=== PATIENT | female | born 1985 | race African-American/Black ===

== ENCOUNTER 2024-02-10 11:12 | Emergency (ER) | payer OTHER, SELFPAY ==
--- NOTE | 2024-02-10 11:24 | ED.SKABFB ---
HPI - Skin/Abscess/Foreign Bdy General Chief complaint: Skin/Abscess/Foreign Body Stated complaint: boil Time Seen by Provider: 02/10/24 11:38 Source: patient, RN notes reviewed and old records reviewed Mode of arrival: ambulatory Limitations: no limitations History of Present Illness HPI narrative: 38-year-old female presents to the [facility] with complaints of a boil to the posterior right labia has a history of a boil to the groin area on the same side. States that she tried squeezing it but was not able to get anything out. Reports that she has been using warm compresses with no relief. Onset (ago): week(s) (1) Related Data Home Medications Medication Instructions Recorded Confirmed alprazolam 1 mg tablet mg 02/10/24 bupropion HCl 150 mg 24 hr tablet, mg PO 02/10/24 extended release buspirone 30 mg tablet mg 02/10/24 cetirizine 10 mg tablet (Zyrtec) 10 mg PO DAILY 02/10/24 02/10/24 etonogestrel 68 mg subdermal 1 implant subdermal ONCE 02/10/24 02/10/24 implant (Nexplanon) losartan 50 mg tablet mg 02/10/24 montelukast 10 mg tablet mg 02/10/24 sertraline 100 mg tablet mg 02/10/24 tirzepatide 2.5 mg/0.5 mL mg subcut 02/10/24 subcutaneous pen injector (Mounjaro) Allergies Allergy/AdvReac Type Severity Reaction Status Date / Time No Known Allergies Allergy Verified 02/10/24 11:39 Review of Systems Review of Systems: All systems reviewed & are unremarkable except as noted in HPI and below Constitutional: Constitutional: Reports no additional constitutional complaints Eyes: Eyes: Reports no additional eye complaints ENT: Reports system reviewed and no additional complaints, except as documented Cardiovascular: Cardiovascular: Reports no additional cardiovascular complaints, Denies chest pain and Denies dyspnea Respiratory: Respiratory: Reports no additional respiratory complaints, Denies chest congestion, Denies cough and Denies dyspnea Gastrointestinal: Gastrointestinal: Reports no additional gastrointestinal complaints, Denies abdominal pain, Denies nausea and Denies vomiting Genitourinary: Genitourinary: Reports as per HPI Musculoskeletal: Musculoskeletal: Reports no additional musculoskeletal complaints Integumentary/Breasts: Skin/Breast: Reports system reviewed and no additional complaints, except as docu Neurologic: Reports system reviewed and no additional complaints, except as documented Psychiatric: Psychiatric: Reports no additional psychiatric complaints Allergic/Immunologic: Allergic/Immunologic: Reports no additional allergic/immunologic complaints PMFSH Comments At the time of my signature, I reviewed and agree with the nursing past medical, surgical, social, and family history. There is no relevant family history pertinent to the patient complaint. Exam Const: General: cooperative, healthy appearing, comfortable, no acute distress, well developed, alert and well nourished Nutritional Appearance: well nourished Orientation/consciousness: patient oriented x3 Limitations: no limitations HENMT: Head: normal to inspection Ears: hearing grossly normal bilaterally and external ears normal Face/Nose/Sinus: Normal external nose present, Normal nares present, Normal nasal mucous membranes and turbinates present, normal facial exam and face symmetric Face and sinus: normal facial exam and face symmetric Eyes: General: appearance normal, both eyes and all related structures Alignment and Position: alignment normal Periorbital: periorbital findings normal Pupils: Equal, round and reactive pupils present EOM: EOMs intact bilaterally Neck: Neck: normal visual inspection, full ROM, no lymphadenopathy and no meningeal signs Chest: Chest palpation & inspection: normal inspection of the chest Resp: Effort & Inspection: normal respiratory effort and able to speak in complete sentences Cardio: Rate: regular rate Rhythm: regular rhythm : External Female Exam: No erythema, N
[2024-02-10 11:33] VITALS: BP 129/81; PULSE 90; RESP 18; TEMP 36.3; O2SAT 98
[2024-02-10] MEDS: LIDOCAINE HCL 1% LOCAL INJ 2 ML AMPUL INFILTRATE (11:56)
--- NOTE | 2024-02-10 12:00 | PC.NURSE ---
Lidocaine not used, will return to pyxis
== END 2024-02-10 12:15 | disposition home or self-care (01) ==
PROVIDERS: Emergency Provider Nurse Practitioner
DX: N90.7 Vulvar cyst (principal)
CPT/HCPCS: 99213; G0463

== ENCOUNTER 2024-05-04 17:36 | Inpatient (IN) | payer OTHER, SELFPAY ==
[2024-05-04] VITALS (9 sets, daily range): BP systolic 113–143; BP diastolic 66–74; PULSE 113–130; RESP 17–26; TEMP 37.1–38.1; O2SAT 98–100; BMI 40.6
--- NOTE | ~2024-05-04 | XR_ITS ---
EXAMINATION: XR chest 2V DATE: 05/04/2024 18:31 INDICATION: Sepsis. TECHNIQUE: Frontal and lateral views of the chest were obtained. COMPARISON: None. FINDINGS: There is no pneumonia, pleural effusion, or pneumothorax. The heart size is normal. IMPRESSION: 1. No acute cardiopulmonary disease. Reviewed, dictated and finalized at location E.
--- NOTE | ~2024-05-04 | CT_ITS ---
EXAMINATION: CT abdomen pelvis w con DATE: 05/04/2024 20:40 INDICATION: Right flank pain. Septic. TECHNIQUE: Computed tomography (CT) of the abdomen and pelvis was performed with 100 mL Omnipaque 350 intravenous contrast. Automated exposure control and iterative reconstruction technique were employe d. The dose-length product was 1493.41 mGy-cm. COMPARISON: None. FINDINGS: The lung bases are clear without pneumonia or pleural effusion. The heart size is normal. N o pericardial effusion. There are bilateral breast implants. The liver and spleen are normal. There a re changes of cholecystectomy. The pancreas, adrenal glands, and left kidney are normal. There is cor tical thinning of right kidney. There is asymmetric edema around right kidney. There is a striated ri ght-sided contrast nephrogram. There is urothelial thickening and enhancement involving the right ure ter. There are no dilated loops of bowel. The appendix is normal. There are no pathologically enlarge d lymph nodes. There is no free intraperitoneal fluid. There is severe lower lumbar spondylosis. IMPRESSION: 1. Right-sided pyelonephritis. Reviewed, dictated and finalized at location E.
--- NOTE | 2024-05-04 17:48 | ECG_ITS ---
Test Date: 2024-05-04 18:45:40 Measurements Intervals [place] Rate: 110 P: 65 MS: 159 QRS: 1 QRSD: 94 T: 66 QT: 318 QTc: 431 Interpretive Statements SINUS TACHYCARDIA OTHERWISE NORMAL ECG No previous ECG available for comparison Electronically Signed On 05-05-2024 08:36:25 CDT by Mahad Connor M.D.
--- NOTE | 2024-05-04 17:50 | ED.BACK ---
HPI - Back Pain/Injury General Chief Complaint: Back Pain/Injury Stated Complaint: R flank pain, headache Time Seen by Provider: 05/04/24 17:37 Source: patient Mode of arrival: ambulatory Limitations: no limitations History of Present Illness HPI Narrative: This is a 38-year-old female who presents to the ED via EMS with chief complaint of right flank pain that started yesterday. Reports sweats, fevers with temperature max of 102.9? F. Endorses urinary frequency as well and thinks that she may have pyelonephritis. 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 States that she had urologic procedure in 2019 due to retrograde urinary flow, but has not had any issues with this. Endorses some pain over the bladder but denies any left-sided flank pain. Denies chest pain, shortness of breath, syncope, dizziness, problems with bowel movements. also had recent surgical history of left ankle ligament repair and currently has the leg wrapped in Reyes wrap. Related Data Home Medications Medication Instructions Recorded Confirmed alprazolam 1 mg tablet 1 mg PO BID PRN Anxiety 02/10/24 05/04/24 bupropion HCl 150 mg 24 hr tablet, 300 mg PO DAILY 02/10/24 05/04/24 extended release buspirone 30 mg tablet 30 mg PO BID 02/10/24 05/04/24 cetirizine 10 mg tablet (Zyrtec) 10 mg PO DAILY 02/10/24 05/04/24 etonogestrel 68 mg subdermal 1 implant subdermal ONCE 02/10/24 05/04/24 implant (Nexplanon) losartan 50 mg tablet 50 mg PO DAILY 02/10/24 05/04/24 montelukast 10 mg tablet 10 mg PO DAILY 02/10/24 05/04/24 sertraline 100 mg tablet 150 mg PO DAILY 02/10/24 05/04/24 tirzepatide 2.5 mg/0.5 mL 2.5 mg subcut WEEKLY 02/10/24 05/04/24 subcutaneous pen injector (Hair) aspirin 325 mg tablet,delayed 325 mg PO DAILY ankle surgery 05/04/24 05/04/24 release benzonatate 100 mg capsule 100 mg PO TID 05/04/24 05/05/24 docusate sodium 100 mg capsule 100 mg PO DAILY 05/04/24 05/04/24 duloxetine 30 mg capsule,delayed 30 mg PO BID 05/04/24 05/04/24 release esketamine 84 mg (28 mg x 3) nasal 84 mg intranasal DAILY 05/04/24 05/04/24 spray (Spravato) eszopiclone 2 mg tablet (Lunesta) 2 mg PO HS 05/04/24 05/04/24 ferrous sulfate 325 mg (65 mg 325 mg PO DAILY 05/04/24 05/04/24 iron) tablet (FeroSul) folic acid 1 mg tablet 1 mg PO DAILY 05/04/24 05/04/24 oxycodone-acetaminophen 10 mg-325 1 tablet PO Q6H PRN left ankle pain 05/04/24 05/04/24 mg tablet Allergies Allergy/AdvReac Type Severity Reaction Status Date / Time No Known Allergies Allergy Verified 02/10/24 11:39 Review of Systems Review of Systems: All systems as dictated in [facility] Family History Family History (Updated 05/04/24 @ 23:51 by Rosi Lemons) Sibling End stage kidney disease Father Cancer Hypertension Mother Diabetes mellitus Social History Social History Smoking status: Never smoker Alcohol intake: never Substance use: never Do You Feel Safe in your Home?: Yes Lack of Transportation: No Lack of Food: Never True Current Housing: I Have Housing Concerned About Future Housing: No Difficulty Paying Gas/Electric Bills: No Difficulty Paying for Meds: No Currently Unemployed: No Education: Master's Degree or Higher Difficulty w/ Childcare or Family Care: No Spiritual care concerns: No Exam Narrative: GENERAL: Well-appearing, well-nourished, and in no acute distress. HEAD: Normocephalic, atraumatic. EYES: PERRLA and EOMI. ENT: Nares clear, no rhinorrhea or epistaxis. Mucous membranes moist. Oropharynx without tonsillar hypertrophy exudate or other lesions. NECK: Supple. No adenopathy or masses. CHEST: No respiratory distress. Clear to auscultation. No wheezes rales or rhonchi HEART: Regular rate and rhythm. No murmur heard. Normal peripheral pulses. ABDOMEN: R flank tenderness. No L flank tenderness Soft, otherwise nontender, nondistended, normal a
[2024-05-04] MEDS: SODIUM CHLORIDE 0.9% IV 1,000 ML 999 ML IV CONT ×2 (18:19)
[2024-05-04] MEDS: METOCLOPRAMIDE HCL INJ 10 MG/2 ML VIAL IV PUSH (18:19)
[2024-05-04 18:20] LABS: Hematocrit 42.8 % (37.0-47.0); Hemoglobin 14.3 g/dL (12.0-15.0); Mean Corpuscular HGB Conc 33.4 g/dl (32-36); Mean Corpuscular Hemoglobin 30.4 pg (26-34); Mean Corpuscular Volume 90.9 fl (80-100); Mean Platelet Volume 10.2 fl (7.4-10.4); Platelet Count Result 189 k/mm3 (150-375); Red Blood Count 4.71 M/mm3 (4.2-5.4); Red Cell Distribution Width 11.9 % (11.5-14.5)
[2024-05-04 18:30] LABS: INR 1.2; Prothrombin Time 15.4 Seconds (11.1-14.7)
[2024-05-04 18:31] LABS: Partial Thromboplastin Time 27.2 Seconds (22.3-36.8)
[2024-05-04 18:33] LABS: Alanine Aminotransferase 41 U/L (6-35); Albumin Level 4.4 g/dL (3.5-5.1); Alkaline Phosphatase 59 U/L (38-126); Anion Gap 9 mmol/L (4-12); Aspartate Amino Transferase 36 U/L (14-36); Bilirubin,Total 0.9 mg/dL (0.2-1.3); Blood Urea Nitrogen 15 mg/dL (7-17); CRP 6.4 mg/dL (<1.0); Calcium 8.7 mg/dL (8.4-10.2); Carbon Dioxide 24 mmol/L (22-30); Chloride 102 mmol/L (98-107); Estimated CRCL calculation 86 ml/min; Estimated Glomerular Filt Rate 60; Glucose 135 mg/dL (65-110); Lipase 33 U/L (23-300); Potassium 3.6 mmol/L (3.4-5.0); Sodium 135 mmol/L (137-145)
[2024-05-04 18:38] LABS: Lactic Acid Reflex 1.6 mmol/L (0.7-2.0)
[2024-05-04 18:43] LABS: Band Neutrophils Percent 5 % (0-6); Lymphocytes Absolute Manual 1.05 K/mm3 (1.1-4.5); Monocytes Percent Manual 2 % (3-9); Neutrophils Absolute Manual 13.65 K/mm3 (1.7-7.2); Neutrophils Percent Manual 86 % (46-73); Platelet Estimate Adequate (Adequate); Schistocytes None Seen; Total Cells Counted 100
[2024-05-04] MEDS: ACETAMINOPHEN 500 MG TABLET 1000 MG PO (20:04)
[2024-05-04 20:27] LABS: Appearance Urine Turbid (Clear); Bacteria Urine 4+ /hpf; Bilirubin Urine Negative (Negative); Blood Urine 2+ (Negative); Color Urine Yellow (Yellow); Glucose Urine UA Negative (Negative); Ketones Urine Trace mg/dL (Negative); Leukocyte Esterase Ur 3+ LEU/UL (Negative); Nitrate Urine Positive (Negative); Protein Urine 3+ mg/dL (Negative); RBC Urine 51-100 /hpf (0-2); Specific Grav Ur 1.019 (1.001-1.035); Squamous Epithelial Cell Urine Few /hpf (Few); WBC Urine >100 /hpf (0-3)
[2024-05-04 20:39] LABS: Add Urine Microscopic? YES
[2024-05-04] MEDS: SODIUM CHLORIDE 0.9% IV 1,000 ML 150 ML IV CONT (22:19)
--- NOTE | 2024-05-04 22:21 | PM.IMHP ---
H&P: HPI History of Present Illness Date/Time: 05/04/24 23:50 Chief Complaint: Right flank pain Narrative: 38-year-old female with a past medical history of obesity, obstructive sleep apnea, prior right ureteral reimplantation in 2020, essential hypertension, anxiety and depression who presented to the ER via EMS with right flank pain. The patient reported that for the last 3 days she has been having increasing urinary frequency urgency and dysuria associated with foul-smelling urine. It was accompanied by nausea and today she acutely febrile with a T-max of 102.9?. Her fever was acute accompanied by rigors. She reported that this is the 1st time her life she history of the experienced chills to that extent. She recently had a left ankle surgery for tendon repair and has been having difficulty with getting to the bathroom given her urgency. She subsequently ended up sitting in the floor leaning against a shower stool so that she did not have to leave the bathroom and could still get to the commode. When the fever started she realized she does need to come into the hospital for evaluation. She has not had a urinary tract infection in 2 years and has never had pyelonephritis. She denies any history of drug-resistant infections. She follows Dr. Donis at [facility]. She reports a moderate headache 5/10 in intensity mostly at the temples. Her headache was improved with Dilaudid provided in the ER. She reports her flank pain was a currently a 3/10 in intensity but was much more severe earlier in the day. She denies any chest pain or shortness of breath. Patient was initially hypotensive for EMS. She has been persistently tachycardic since presentation. She reports that she feels somewhat better after receiving 1 L fluid bolus for EMS and 2 L fluid bolus in the ER. She was continued on IV fluids and admitted to the medical floor after receiving Rocephin. Blood cultures and urine cultures are pending. Review of Systems Review of Systems: 12 systems were reviewed with pertinent positives and negatives per HPI. Except as documented in the HPI, all other systems were reviewed and are negative. [facility] Past Medical History Medical History (Updated 05/05/24 @ 03:36 by Sari Penny DO) Anxiety and depression Essential hypertension Hyperlipidemia Irritable bowel syndrome Migraine Morbid obesity with BMI of 40.0-44.9, adult Obstructive sleep apnea on CPAP PTSD (post-traumatic stress disorder) Surgical History Surgical History (Updated 05/05/24 @ 03:36 by Sari Penny DO) H/O lateral meniscus repair of right knee X3 History of ankle surgery Left ankle surgery April 2024 History of breast augmentation History of laparoscopic cholecystectomy History of tonsillectomy and adenoidectomy Status post ureteral reimplantation Right-sided 2020 Family History Family History (Updated 05/05/24 @ 03:23 by Sari Penny DO) Sibling End stage kidney disease Focal segmental glomerular sclerosis Unilateral congenital absence of kidney Father Hypertension Laryngeal cancer Continuous tobacco abuse Mother Diabetes mellitus Social History Social History (Updated 05/05/24 @ 03:25 by Sari Penny DO) Social History: 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 She is single and lives alone with her pebble/Italian bulldog. She is a lifelong nonsmoker. She rarely drinks alcohol and only in small amounts. She denies illicit substance use. Code status: Full code Surrogate decision maker: Mother Smoking status: Never smoker Alcohol intake: never Substance use: never Do You Feel Safe in your Home?: Yes Lack of Transportation: No Lack of Food: Never True Current Housing: I Have Housing Concerned About Future Housing: No Difficulty Paying Gas/Electric Bills: No Difficulty Paying for Meds: No Currently Unemployed: No Education: Master's Degree or Higher Diffi
--- NOTE | 2024-05-04 22:32 | ADMGEN ---
This patient, Joyce Rodriguez, was admitted to [address] [place] [address] Room 300-01 at 22:30. Patient/family oriented to hospital policies and general routines including ID bracelet, bed and alarms, visiting hours, pain management, procedures, bathroom and other care routines, personal items, smoking policy, room service/diet, and visiting hours. Information on how to activate the Rapid Response Team has been discussed. Patient/Family are encouraged to report perceived risks to care and to ask questions if they do not understand what they are told or what they should do.
[2024-05-04] MEDS: ONDANSETRON INJ 4 MG/2 ML VIAL IV PUSH (22:45)
[2024-05-04] MEDS: HYDROmorphone HCL INJ (*CRX) 1 MG/ML SYR 0.5 MG IV PUSH (22:45)
[2024-05-05] VITALS (11 sets, daily range): BP systolic 115–127; BP diastolic 54–70; PULSE 99–126; RESP 18–20; TEMP 35.7–37.5; O2SAT 93–99
[2024-05-05] MEDS: ACETAMINOPHEN 325 MG TABLET 650 MG PO ×3 (01:10→23:58)
[2024-05-05] MEDS: oxyCODONE/ACETAMINOPHEN (*CRX) 10-325 MG TABLET 1 TAB PO ×3 (05:15→20:24)
[2024-05-05] MEDS: ASPIRIN 325 MG ENTERIC TABLET PO (08:52)
[2024-05-05] MEDS: SERTRALINE HCL 50 MG TABLET 150 MG PO (08:52)
[2024-05-05] MEDS: buPROPion HCL XL (24 HR) 150 MG TABCR 300 MG PO (08:52)
[2024-05-05] MEDS: MONTELUKAST SODIUM 10 MG TABLET PO (08:52)
[2024-05-05] MEDS: LORATADINE 10 MG TABLET PO (08:52)
[2024-05-05] MEDS: LOSARTAN POTASSIUM 50 MG TABLET PO (08:53)
[2024-05-05] MEDS: DOCUSATE SODIUM 100 MG CAPSULE PO ×2 (08:53→20:26)
[2024-05-05] MEDS: DULoxetine HCL 30 MG CAPSULE.DR PO ×2 (08:53→17:44)
[2024-05-05] MEDS: FOLIC ACID 1 MG TABLET PO (08:53)
[2024-05-05] MEDS: FERROUS SULFATE 325 MG TABLET DR PO (08:53)
[2024-05-05] MEDS: busPIRone HCL 10 MG TABLET 30 MG PO ×2 (08:53→21:16)
[2024-05-05] MEDS: ONDANSETRON INJ 4 MG/2 ML VIAL IV PUSH (13:57)
[2024-05-05] MEDS: SODIUM CHLORIDE 0.9% IV 1,000 ML 150 ML IV CONT ×2 (13:58→20:27)
[2024-05-05 15:08] LABS: Basophils Absolute Auto 0.1 K/mm3 (0.0-0.1); Basophils Percent Auto 0.3 % (0.2-1.2); Eosinophils Absolute Auto 0.8 K/mm3 (0-0.3); Hematocrit 39.5 % (37.0-47.0); Hemoglobin 13.4 g/dL (12.0-15.0); Immature Granulocyte Absolute 0.22 K/mm3 (0.00-0.031); Immature Granulocyte Percent A 1.4 % (0-0.5); Lymphocytes Absolute Auto 0.98 K/mm3 (0.9-3.2); Lymphocytes Percent Auto 6.2 % (18.3-44.2); Mean Corpuscular HGB Conc 33.9 g/dl (32-36); Mean Corpuscular Hemoglobin 30.7 pg (26-34); Mean Corpuscular Volume 90.4 fl (80-100); Mean Platelet Volume 10.8 fl (7.4-10.4); Monocytes Absolute Auto 0.9 K/mm3 (0.1-0.6); Monocytes Percent Auto 5.4 % (2.6-8.5); Neutrophils Absolute Auto 12.8 K/mm3 (1.3-6.7); Neutrophils Percent Auto 81.7 % (45.5-73.1); Platelet Count Result 173 k/mm3 (150-375); Red Blood Count 4.37 M/mm3 (4.2-5.4); Red Cell Distribution Width 12.3 % (11.5-14.5); White Blood Count 15.7 K/mm3 (4.5-10.0)
[2024-05-05 15:27] LABS: Anion Gap 8 mmol/L (4-12); Blood Urea Nitrogen 12 mg/dL (7-17); Calcium 8.5 mg/dL (8.4-10.2); Carbon Dioxide 23 mmol/L (22-30); Chloride 104 mmol/L (98-107); Estimated CRCL calculation 94 ml/min; Estimated Glomerular Filt Rate > 60; Glucose 173 mg/dL (65-110); Potassium 3.2 mmol/L (3.4-5.0); Sodium 135 mmol/L (137-145)
--- NOTE | 2024-05-05 15:33 | PM.IMPN ---
Progress Note: A&P Assessment and Plan (1) Pyelonephritis of right kidney: Code(s): N12 - Tubulo-interstitial nephritis, not specified as acute or chronic Status: Acute (2) Sepsis: Qualifiers: Acute renal failure type: unspecified Sepsis acute organ dysfunction status: with acute organ dysfunction Sepsis type: sepsis due to unspecified organism Severe sepsis acute organ dysfunction type: acute renal failure Severe sepsis shock status: without septic shock Qualified Code(s): A41.9 - Sepsis, unspecified organism; R65.20 - Severe sepsis without septic shock; N17.9 - Acute kidney failure, unspecified Code(s): A41.9 - Sepsis, unspecified organism Status: Acute (3) Obstructive sleep apnea on CPAP: Code(s): G47.33 - Obstructive sleep apnea (adult) (pediatric) Status: Acute (4) Acute kidney injury: Code(s): N17.9 - Acute kidney failure, unspecified Status: Acute Plan Sepsis, right pyelonephritis Patient has fever 100.5 on arrival, leukocytosis 15,000, tachycardia tachypnea, waiting criteria of sepsis Likely resulting from right-sided pyelonephritis Pending blood culture urine culture Continue ceftriaxone IV Continue fluid resuscitation Essential hypertension Continue home medication, however stable recent ankle surgery on Percocet for pain at home. Bracing remains in place. Continue home medications for anxiety and depression. Auto titrating CPAP has been provided. Patient has been admitted as observation status. Subjective Date/time seen: 05/05/24 15:33 Interval history: I saw exam patient, patient still has a phlegm pain, denies nausea vomiting. Patient has a fever over the night, blood pressure stable Exam Narrative: GENERAL: Pleasant, in no acute distress. Well-nourished. - EYES: EOMI. Anicteric. - HENT: Moist mucous membranes. - LUNGS: Clear to auscultation bilaterally, no wheezing, rhonchi, or rales. - CARDIOVASCULAR: Regular rate and rhythm. No murmur. No JVD. - ABDOMEN: Soft, right flank tender and non-distended. No palpable masses. - EXTREMITIES: No edema. Peripheral pulses 2+. Non-tender. Left ankle is fixed in splints - NEUROLOGIC: No focal neurological deficits. CN II-XII grossly intact. - PSYCHIATRIC: Awake, Alert and oriented x 3. Appropriate mood and affect. - SKIN: No rashes or lesions. Warm. - LYMPH: No cervical lymphadenopathy. Objective Data Vital Signs Vital Signs: Vital Signs - 24 hr 05/04/24 17:35 05/04/24 19:36 05/04/24 20:15 Temperature 100.4 F H 100.5 F H Pulse Rate 117 H 130 H Respiratory Rate 17 26 H Blood Pressure 113/70 143/66 H Pulse Oximetry 100 99 Oxygen Delivery Room Air 05/04/24 20:28 05/04/24 20:58 05/04/24 21:30 Temperature Pulse Rate 122 H 122 H 113 H Respiratory Rate 26 H 21 H 20 Blood Pressure Pulse Oximetry 98 Oxygen Delivery 05/04/24 22:17 05/04/24 20:34 05/04/24 22:53 Temperature 99.6 F 100 F H 98.7 F Pulse Rate 114 H 122 H Respiratory Rate 19 20 Blood Pressure 118/70 120/74 Pulse Oximetry 100 100 Oxygen Delivery 05/05/24 01:30 05/05/24 00:00 05/05/24 00:00 Temperature Pulse Rate 126 H Respiratory Rate Blood Pressure Pulse Oximetry Oxygen Delivery Autopap Room Air 05/05/24 04:00 05/05/24 04:55 05/05/24 05:15 Temperature 99.5 F Pulse Rate 125 H 115 H Respiratory Rate 20 Blood Pressure 127/62 Pulse Oximetry 99 99 Oxygen Delivery Autopap 05/05/24 08:45 05/05/24 14:00 Temperature 96.3 F L Pulse Rate 109 H Respiratory Rate 20 Blood Pressure 118/70 Pulse Oximetry 93 Oxygen Delivery Room Air Intake/Output Intake/Output: Intake & Output 05/02/24 05/03/24 05/04/24 05/05/24 23:59 23:59 23:59 23:59 Intake Total 2049 1729 Balance 2049 1729 Meds/Results Medications: Active Medications Generic Name Dose Route Start Last Admin Trade Name Freq PRN Reason Stop Dose Adm
[2024-05-05] MEDS: HYDROmorphone HCL INJ (*CRX) 1 MG/ML SYR 0.5 MG IV PUSH (17:46)
[2024-05-05] MEDS: SALINE LOCK FLUSH 10 ML IV PUSH (20:26)
[2024-05-05] MEDS: ALPRAZolam (*CRX) 0.5 MG TABLET 1 MG PO (21:17)
[2024-05-06] VITALS (11 sets, daily range): BP systolic 114–135; BP diastolic 55–82; PULSE 99–125; RESP 16–18; TEMP 36.3–37.1; O2SAT 96–100
[2024-05-06] MEDS: SODIUM CHLORIDE 0.9% IV 1,000 ML 150 ML IV CONT ×3 (04:38→21:26)
[2024-05-06] MEDS: ALPRAZolam (*CRX) 0.5 MG TABLET 1 MG PO ×2 (04:38→18:22)
--- NOTE | 2024-05-06 07:51 | PM.IMPN ---
Progress Note: A&P Assessment and Plan (1) Pyelonephritis of right kidney: Code(s): N12 - Tubulo-interstitial nephritis, not specified as acute or chronic Status: Acute (2) Sepsis: Qualifiers: Acute renal failure type: unspecified Sepsis acute organ dysfunction status: with acute organ dysfunction Sepsis type: sepsis due to unspecified organism Severe sepsis acute organ dysfunction type: acute renal failure Severe sepsis shock status: without septic shock Qualified Code(s): A41.9 - Sepsis, unspecified organism; R65.20 - Severe sepsis without septic shock; N17.9 - Acute kidney failure, unspecified Code(s): A41.9 - Sepsis, unspecified organism Status: Acute (3) Obstructive sleep apnea on CPAP: Code(s): G47.33 - Obstructive sleep apnea (adult) (pediatric) Status: Acute (4) Acute kidney injury: Code(s): N17.9 - Acute kidney failure, unspecified Status: Acute Plan Sepsis, right pyelonephritis Patient has fever 100.5 on arrival, leukocytosis 15,000, tachycardia tachypnea, waiting criteria of sepsis Likely resulting from right-sided pyelonephritis blood culture no growth, Pending susceptibility to E coli growing from Urine culture Continue ceftriaxone IV Continue fluid resuscitation Essential hypertension Continue home medication, however stable recent ankle surgery on Percocet for pain at home. Bracing remains in place. Continue home medications for anxiety and depression. Auto titrating CPAP has been provided. Patient has been admitted as observation status. Subjective Date/time seen: 05/06/24 07:51 Interval history: Patient is afebrile, blood pressure stable blood culture no growth of bacteria, E coli growing from urine culture. Pending susceptibility Patient feels abdomen pain is better control, denies nausea vomiting diarrhea. Patient afebrile heart per stable Exam Narrative: GENERAL: Pleasant, in no acute distress. Well-nourished. - EYES: EOMI. Anicteric. - HENT: Moist mucous membranes. - LUNGS: Clear to auscultation bilaterally, no wheezing, rhonchi, or rales. - CARDIOVASCULAR: Regular rate and rhythm. No murmur. No JVD. - ABDOMEN: Soft, right flank tender and non-distended. No palpable masses. - EXTREMITIES: No edema. Peripheral pulses 2+. Non-tender. Left ankle is fixed in splints - NEUROLOGIC: No focal neurological deficits. CN II-XII grossly intact. - PSYCHIATRIC: Awake, Alert and oriented x 3. Appropriate mood and affect. - SKIN: No rashes or lesions. Warm. - LYMPH: No cervical lymphadenopathy. Objective Data Vital Signs Vital Signs: Vital Signs - 24 hr 05/05/24 08:45 05/05/24 14:00 05/05/24 08:00 Temperature 96.3 F L Pulse Rate 109 H 99 Respiratory Rate 20 Blood Pressure 118/70 Pulse Oximetry 93 Oxygen Delivery Room Air 05/05/24 12:00 05/05/24 16:00 05/05/24 20:36 Temperature 98.1 F Pulse Rate 106 H 101 H 117 H Respiratory Rate 18 Blood Pressure 115/54 L Pulse Oximetry 98 Oxygen Delivery 05/05/24 20:00 05/06/24 05:43 05/06/24 00:00 Temperature 97.3 F L Pulse Rate 120 H 100 116 H Respiratory Rate 18 Blood Pressure 135/82 Pulse Oximetry 96 Oxygen Delivery 05/06/24 04:00 05/05/24 23:53 05/06/24 04:04 Temperature Pulse Rate 102 H Respiratory Rate Blood Pressure Pulse Oximetry 98 98 Oxygen Delivery Autopap Autopap Intake/Output Intake/Output: Intake & Output 05/03/24 05/04/24 05/05/24 05/06/24 23:59 23:59 23:59 23:59 Intake Total 2049 2820.5 1000 Balance 2049 2820.5 1000 Meds/Results Medications: Active Medications Generic Name Dose Route Start Last Admin Trade Name Freq PRN Reason Stop Dose Admin Acetaminophen 650 mg 05/04/24 21:24 05/05/24 23:58 Acetaminophen 325 Mg Tablet PO 650 mg Q4H PRN Administration Mild Pain (1-3) or Fever Alprazolam 1 mg 05/05/24 01:00 05/06/24 04:38 Alprazolam (*Cr
[2024-05-06] MEDS: DOCUSATE SODIUM 100 MG CAPSULE PO ×2 (10:15→21:17)
[2024-05-06] MEDS: DULoxetine HCL 30 MG CAPSULE.DR PO ×2 (10:15→18:20)
[2024-05-06] MEDS: MONTELUKAST SODIUM 10 MG TABLET PO (10:15)
[2024-05-06] MEDS: ASPIRIN 325 MG ENTERIC TABLET PO (10:15)
[2024-05-06] MEDS: buPROPion HCL XL (24 HR) 150 MG TABCR 300 MG PO (10:15)
[2024-05-06] MEDS: FOLIC ACID 1 MG TABLET PO (10:15)
[2024-05-06] MEDS: SERTRALINE HCL 50 MG TABLET 150 MG PO (10:15)
[2024-05-06] MEDS: busPIRone HCL 10 MG TABLET 30 MG PO ×2 (10:15→21:16)
[2024-05-06] MEDS: FERROUS SULFATE 325 MG TABLET DR PO (10:16)
[2024-05-06] MEDS: LORATADINE 10 MG TABLET PO (10:16)
[2024-05-06] MEDS: LOSARTAN POTASSIUM 50 MG TABLET PO (10:16)
[2024-05-06] MEDS: ONDANSETRON INJ 4 MG/2 ML VIAL IV PUSH (11:53)
[2024-05-06] MEDS: HYDROmorphone HCL INJ (*CRX) 1 MG/ML SYR 0.5 MG IV PUSH (14:03)
[2024-05-06] MEDS: oxyCODONE/ACETAMINOPHEN (*CRX) 10-325 MG TABLET 1 TAB PO (21:17)
[2024-05-06] MEDS: SALINE LOCK FLUSH 10 ML IV PUSH (21:18)
[2024-05-07] VITALS: PULSE 97
[2024-05-07 04:00] VITALS: PULSE 95
[2024-05-07] MEDS: HYDROmorphone HCL INJ (*CRX) 1 MG/ML SYR 0.5 MG IV PUSH (04:43)
[2024-05-07] MEDS: SODIUM CHLORIDE 0.9% IV 1,000 ML 150 ML IV CONT (04:44)
[2024-05-07 05:24] VITALS: BP 117/65; PULSE 98; RESP 17; TEMP 36.3; O2SAT 98
[2024-05-07] MEDS: oxyCODONE/ACETAMINOPHEN (*CRX) 10-325 MG TABLET 1 TAB PO (07:52)
[2024-05-07 08:00] VITALS: PULSE 95; O2SAT 98
[2024-05-07] MEDS: buPROPion HCL XL (24 HR) 150 MG TABCR 300 MG PO (08:49)
[2024-05-07] MEDS: ASPIRIN 325 MG ENTERIC TABLET PO (08:49)
[2024-05-07] MEDS: SERTRALINE HCL 50 MG TABLET 150 MG PO (08:49)
[2024-05-07] MEDS: DULoxetine HCL 30 MG CAPSULE.DR PO (08:50)
[2024-05-07] MEDS: LOSARTAN POTASSIUM 50 MG TABLET PO (08:50)
[2024-05-07] MEDS: DOCUSATE SODIUM 100 MG CAPSULE PO (08:50)
[2024-05-07] MEDS: MONTELUKAST SODIUM 10 MG TABLET PO (08:50)
[2024-05-07] MEDS: FOLIC ACID 1 MG TABLET PO (08:50)
[2024-05-07] MEDS: FERROUS SULFATE 325 MG TABLET DR PO (08:50)
[2024-05-07] MEDS: LORATADINE 10 MG TABLET PO (08:50)
[2024-05-07] MEDS: busPIRone HCL 10 MG TABLET 30 MG PO (08:50)
--- NOTE | 2024-05-07 10:50 | PM.IMPN ---
Progress Note: A&P Assessment and Plan (1) Pyelonephritis of right kidney: Code(s): N12 - Tubulo-interstitial nephritis, not specified as acute or chronic Status: Acute (2) Sepsis: Qualifiers: Acute renal failure type: unspecified Sepsis acute organ dysfunction status: with acute organ dysfunction Sepsis type: sepsis due to unspecified organism Severe sepsis acute organ dysfunction type: acute renal failure Severe sepsis shock status: without septic shock Qualified Code(s): A41.9 - Sepsis, unspecified organism; R65.20 - Severe sepsis without septic shock; N17.9 - Acute kidney failure, unspecified Code(s): A41.9 - Sepsis, unspecified organism Status: Acute (3) Obstructive sleep apnea on CPAP: Code(s): G47.33 - Obstructive sleep apnea (adult) (pediatric) Status: Acute (4) Acute kidney injury: Code(s): N17.9 - Acute kidney failure, unspecified Status: Acute Plan Sepsis, right pyelonephritis Patient has fever 100.5 on arrival, leukocytosis 15,000, tachycardia tachypnea, waiting criteria of sepsis Likely resulting from right-sided pyelonephritis blood culture no growth, Gupta- susceptibility to E coli growing from Urine culture Patient has received ceftriaxone 1 g IV 3 days Also received fluid resuscitation Changed to Augmentin p.o. for total 10 days Essential hypertension Continue home medication, however stable recent ankle surgery on Percocet for pain at home. Bracing remains in place. Continue home medications for anxiety and depression. Auto titrating CPAP has been provided. Subjective Date/time seen: 05/07/24 10:50 Interval history: Patient is afebrile, blood pressure stable blood culture no growth of bacteria, E coli growing from urine culture, susceptible to penicillin and cephalosporin Patient patient denies abdomen pain nausea vomiting diarrhea. Afebrile, blood pressure stable Exam Narrative: GENERAL: Pleasant, in no acute distress. Well-nourished. Obesity - EYES: EOMI. Anicteric. - HENT: Moist mucous membranes. - LUNGS: Clear to auscultation bilaterally, no wheezing, rhonchi, or rales. - CARDIOVASCULAR: Regular rate and rhythm. No murmur. No JVD. - ABDOMEN: Soft, non-tender and non-distended. No palpable masses. - EXTREMITIES: No edema. Peripheral pulses 2+. Non-tender. - NEUROLOGIC: No focal neurological deficits. CN II-XII grossly intact. - PSYCHIATRIC: Awake, Alert and oriented x 3. Appropriate mood and affect. - SKIN: No rashes or lesions. Warm. - LYMPH: No cervical lymphadenopathy. Objective Data Vital Signs Vital Signs: Vital Signs - 24 hr 05/06/24 14:00 05/06/24 12:00 05/06/24 16:00 Temperature 98.7 F Pulse Rate 100 100 125 H Respiratory Rate 18 Blood Pressure 125/66 Pulse Oximetry 100 Oxygen Delivery 05/06/24 20:11 05/06/24 20:00 05/07/24 00:00 Temperature 97.4 F L Pulse Rate 102 H 106 H 97 Respiratory Rate 16 Blood Pressure 114/55 L Pulse Oximetry 99 Oxygen Delivery 05/07/24 04:00 05/07/24 05:24 05/06/24 22:10 Temperature 97.3 F L Pulse Rate 95 98 99 Respiratory Rate 17 Blood Pressure 117/65 Pulse Oximetry 98 98 Oxygen Delivery 05/07/24 08:00 05/07/24 08:00 Temperature Pulse Rate 95 Respiratory Rate Blood Pressure Pulse Oximetry 98 Oxygen Delivery Room Air Intake/Output Intake/Output: Intake & Output 05/04/24 05/05/24 05/06/24 05/07/24 23:59 23:59 23:59 23:59 Intake Total 0 2870.5 4187.5 1000 Output Total 1000 Balance 0 2870.5 3187.5 1000 Meds/Results Medications: Active Medications Generic Name Dose Route Start Last Admin Trade Name Freq PRN Reason Stop Dose Admin Acetaminophen 650 mg 05/04/24 21:24 05/05/24 23:58 Acetaminophen 325 Mg Tablet PO 650 mg Q4H PRN Administration Mild Pain (1-3) or Fever Alprazolam 1 mg 05/05/24 01:00 05/06/24 18:22 Alprazolam (*Crx) 0.5 Mg Tablet P
--- NOTE | 2024-05-07 10:52 | PM.DS ---
DS: Admitting Diagnosis Discharge Date 05/07 Admitting Diagnosis (1) Pyelonephritis of right kidney: Code(s): N12 - Tubulo-interstitial nephritis, not specified as acute or chronic Status: Acute (2) Sepsis: DS: Discharge Diagnosis Discharge Diagnosis (1) Pyelonephritis of right kidney: Code(s): N12 - Tubulo-interstitial nephritis, not specified as acute or chronic Status: Acute (2) Sepsis: Qualifiers: Acute renal failure type: unspecified Sepsis acute organ dysfunction status: with acute organ dysfunction Sepsis type: sepsis due to unspecified organism Severe sepsis acute organ dysfunction type: acute renal failure Severe sepsis shock status: without septic shock Qualified Code(s): A41.9 - Sepsis, unspecified organism; R65.20 - Severe sepsis without septic shock; N17.9 - Acute kidney failure, unspecified Code(s): A41.9 - Sepsis, unspecified organism Status: Acute (3) Obstructive sleep apnea on CPAP: Code(s): G47.33 - Obstructive sleep apnea (adult) (pediatric) Status: Acute (4) Acute kidney injury: Code(s): N17.9 - Acute kidney failure, unspecified Status: Acute DS: Summary Hospital Course Hospital Course: 38-year-old female with a past medical history of obesity, obstructive sleep apnea, prior right ureteral reimplantation in 2020, essential hypertension, anxiety and depression who presented to the ER via EMS with right flank pain. The patient reported that for the last 3 days she has been having increasing urinary frequency urgency and dysuria associated with foul-smelling urine. It was accompanied by nausea and today she acutely febrile with a T-max of 102.9?. Her fever was acute accompanied by rigors. She reported that this is the 1st time her life she history of the experienced chills to that extent. Sepsis, right pyelonephritis Patient has fever 100.5 on arrival, leukocytosis 15,000, tachycardia tachypnea, waiting criteria of sepsis Likely resulting from right-sided pyelonephritis blood culture no growth, Gupta- susceptibility to E coli growing from Urine culture Patient has received ceftriaxone 1 g IV 3 days Also received fluid resuscitation Changed to Augmentin p.o. for total 10 days Essential hypertension Continue home medication, however stable recent ankle surgery on Percocet for pain at home. Bracing remains in place. Continue home medications for anxiety and depression. Auto titrating CPAP has been provided. Time Spent with Patient Time attestation: Total time spent providing and/or coordinating discharge services: Exam Narrative: GENERAL: Pleasant, in no acute distress. Well-nourished. Obesity - EYES: EOMI. Anicteric. - HENT: Moist mucous membranes. - LUNGS: Clear to auscultation bilaterally, no wheezing, rhonchi, or rales. - CARDIOVASCULAR: Regular rate and rhythm. No murmur. No JVD. - ABDOMEN: Soft, non-tender and non-distended. No palpable masses. - EXTREMITIES: No edema. Peripheral pulses 2+. Non-tender. - NEUROLOGIC: No focal neurological deficits. CN II-XII grossly intact. - PSYCHIATRIC: Awake, Alert and oriented x 3. Appropriate mood and affect. - SKIN: No rashes or lesions. Warm. - LYMPH: No cervical lymphadenopathy. DS: Data Data Completed and Pending Labs on day of discharge: Preliminary micro results at discharge 05/04/24 19:17 Blood Culture - Preliminary Blood 05/04/24 19:17 Blood Culture - Preliminary Blood Discharge Plan Discharge Attending physician on discharge: Ashlyn Sinclair Discharging Clinician: Ashlyn Sinclair Anticipated Discharge Date/Time: 05/07/24 10:52 Patient Disposition: Home, Self-Care Activity: as tolerated Diet: as tolerated Patient Instructions: Antibiotic Form, Removal of a Central Line, PICC, or Midline Catheter (DC) Stand Alone Forms: General Discharge Information Follow-up/Referrals: Raeann,Sherry Shaw [Other] Latasha
[2024-05-07 12:00] VITALS: PULSE 88
[2024-05-07 14:00] VITALS: BP 128/80; PULSE 108; RESP 16; TEMP 36.6; O2SAT 98
== END 2024-05-07 18:19 | disposition home or self-care (01) | DRG 872 ==
LOC: ANHED 18:17 → ANH3MEDSUR 22:19
PROVIDERS: Admitting Provider Internal Medicine; Emergency Provider Physician Assistant; Visit Provider Hospitalist
DX: A41.9 Sepsis, unspecified organism (principal); N10 Acute pyelonephritis; N17.9 Acute kidney failure, unspecified; Z68.41 Body mass index [BMI] 40.0-44.9, adult; R65.20 Severe sepsis without septic shock; G47.33 Obstructive sleep apnea (adult) (pediatric); B96.20 Unspecified Escherichia coli [E. coli] as the cause of diseases classified elsewhere; F41.9 Anxiety disorder, unspecified; F32.A Depression, unspecified; I10 Essential (primary) hypertension; E78.5 Hyperlipidemia, unspecified; K58.9 Irritable bowel syndrome, unspecified; E66.01 Morbid (severe) obesity due to excess calories; F43.10 Post-traumatic stress disorder, unspecified; Z90.49 Acquired absence of other specified parts of digestive tract
CPT/HCPCS: 36415; 36569; 71046; 74177; 80048; 80053; 81001; 81025; 83605; 83690; 85025; 85610; 85730; 86140; 87040; 87077; 87086; 87088; 87186; 93005; 96361; 96365; 96375; 99285; A9270; C1751; G0378; J0696; J1170; J2405; J2765; J7030; Q9967

== ENCOUNTER 2024-06-12 13:04 | Emergency (ER) | payer OTHER, SELFPAY ==
[2024-06-12 13:13] VITALS: BP 123/80; PULSE 61; RESP 16; TEMP 36.2; O2SAT 98
[2024-06-12 13:19] VITALS: BP 123/80; PULSE 61; RESP 16; TEMP 36.2; O2SAT 98
[2024-06-12 13:23] LABS: EDUAAPPEAR Cloudy; EDUABILI Negative; EDUABLOOD Trace; EDUACOLOR1 Light/Pale; EDUAGLUCOSE Negative; EDUAKETONE Negative; EDUALEUKO 1+; EDUANITRATE Negative; EDUAPROTEIN Negative; EDUASPGRAVITY 1.015; EDUAUROBILI 0.2
--- NOTE | 2024-06-12 13:36 | ED.FEMALEGU ---
HPI - Female Genitourinary General Chief complaint: Urogenital-Female Stated complaint: uti symptoms Time Seen by Provider: 06/12/24 13:27 Source: patient, RN notes reviewed and old records reviewed Mode of arrival: ambulatory Limitations: no limitations History of Present Illness HPI Narrative: Patient presents today complaining of a 3-4 day history of dysuria at the end of voiding, malodorous urine, the turbidity in her urine. She also reports some slight intermittent bladder pain that started yesterday. Denies fever, back or flank pain, nausea or vomiting. No [id number] treatment prior to arrival. Patient was seen in the ER at [facility] at the end of April and was admitted for pyelonephritis at that time. She was discharged on Augmentin and review of urine culture shows growth of E coli with no antibiotic resistance. Patient currently has COVID-19 and is taking Paxlovid Related Data Home Medications Medication Instructions Recorded Confirmed alprazolam 1 mg tablet 1 mg PO BID PRN Anxiety 02/10/24 06/12/24 bupropion HCl 150 mg 24 hr tablet, 300 mg PO DAILY 02/10/24 06/12/24 extended release cetirizine 10 mg tablet (Zyrtec) 10 mg PO DAILY 02/10/24 06/12/24 etonogestrel 68 mg subdermal 1 implant subdermal ONCE 02/10/24 06/12/24 implant (Nexplanon) losartan 50 mg tablet 50 mg PO DAILY 02/10/24 06/12/24 montelukast 10 mg tablet 10 mg PO DAILY 02/10/24 06/12/24 sertraline 100 mg tablet 150 mg PO DAILY 02/10/24 06/12/24 tirzepatide 2.5 mg/0.5 mL 2.5 mg subcut WEEKLY 02/10/24 06/12/24 subcutaneous pen injector (Dameonunmaximo) aspirin 325 mg tablet,delayed 325 mg PO DAILY ankle surgery 05/04/24 06/12/24 release docusate sodium 100 mg capsule 100 mg PO DAILY 05/04/24 06/12/24 duloxetine 30 mg capsule,delayed 30 mg PO BID 05/04/24 06/12/24 release esketamine 84 mg (28 mg x 3) nasal 84 mg intranasal DAILY 05/04/24 06/12/24 spray (Spravato) eszopiclone 2 mg tablet (Lunesta) 2 mg PO HS 05/04/24 06/12/24 ferrous sulfate 325 mg (65 mg 325 mg PO DAILY 05/04/24 06/12/24 iron) tablet (FeroSul) folic acid 1 mg tablet 1 mg PO DAILY 05/04/24 06/12/24 nirmatrelvir 300 mg (150 mg ea PO 06/12/24 06/12/24 x2)-ritonavir 100 mg tablet,dose pack (Paxlovid) Allergies Allergy/AdvReac Type Severity Reaction Status Date / Time aripiprazole [From Abilify] AdvReac Intermediate Other Verified 06/12/24 13:28 lithium AdvReac Intermediate Other Verified 06/12/24 13:29 sulfamethoxazole AdvReac Intermediate Other Verified 06/12/24 13:27 [From Bactrim] trimethoprim [From Bactrim] AdvReac Intermediate Other Verified 06/12/24 13:27 Review of Systems Review of Systems: CONSTITUTIONAL: Denies body aches, fever, chills, or sweats. EYES: Denies visual changes, redness, or discharge. ENT: Denies rhinorrhea, congestion, sore throat, or otalgia. CARDIOVASCULAR: Denies chest pain, palpitations, or edema. RESPIRATORY: Denies cough or dyspnea. GASTROINTESTINAL: Denies abdominal pain, nausea, vomiting, or diarrhea. GENITOURINARY: + dysuria, malodorous and turbid urine, suprapubic discomfort SKIN: Denies rash, itching, or wounds. MUSCULOSKELETAL: Denies back pain, joint pain, or myalgia. NEUROLOGIC: Denies headache, numbness, tingling, or weakness. PSYCH: Denies depression or anxiety. [facility] Past Medical History Medical History Anxiety and depression Essential hypertension Hyperlipidemia Irritable bowel syndrome Migraine Morbid obesity with BMI of 40.0-44.9, adult Obstructive sleep apnea on CPAP PTSD (post-traumatic stress disorder) Surgical History Surgical History H/O lateral meniscus repair of right knee X3 History of ankle surgery Left ankle surgery April 2024 History of breast augmentation History of laparoscopic cholecystectomy History of tonsillectomy and adenoidectomy Status post ureter
== END 2024-06-12 13:36 | disposition home or self-care (01) ==
PROVIDERS: Emergency Provider Nurse Practitioner
DX: N39.0 Urinary tract infection, site not specified (principal); I10 Essential (primary) hypertension; E78.5 Hyperlipidemia, unspecified; E66.9 Obesity, unspecified; Z68.39 Body mass index [BMI] 39.0-39.9, adult; F41.9 Anxiety disorder, unspecified; F32.A Depression, unspecified
CPT/HCPCS: 81003; 87086; 87088; 99213; G0463

== ENCOUNTER 2024-09-04 10:33 | Emergency (ER) | payer OTHER, SELFPAY ==
[2024-09-04 10:50] VITALS: BP 120/73; PULSE 92; RESP 18; TEMP 36; O2SAT 99
--- NOTE | 2024-09-04 10:58 | ED.EYEPROB ---
HPI - Eye Problem General Chief complaint: Eye Problems Stated complaint: pink eye Time Seen by Provider: 09/04/24 10:58 Source: patient, RN notes reviewed and old records reviewed Mode of arrival: ambulatory Limitations: no limitations History of Present Illness HPI Narrative: patient presents with complaints of bilateral eye redness, itching, discharge. She reports that symptoms began yesterday. She does not use contact lenses, does not use eye makeup. She denies any injury or trauma. Does report eyes were matted shut this a.m.. She voices no other concerns or complaints at this time Related Data Home Medications Medication Instructions Recorded Confirmed alprazolam 1 mg tablet 1 mg PO BID PRN Anxiety 02/10/24 09/04/24 bupropion HCl 150 mg 24 hr tablet, 300 mg PO DAILY 02/10/24 09/04/24 extended release cetirizine 10 mg tablet (Zyrtec) 10 mg PO DAILY 02/10/24 09/04/24 etonogestrel 68 mg subdermal 1 implant subdermal ONCE 02/10/24 09/04/24 implant (Nexplanon) losartan 50 mg tablet 50 mg PO DAILY 02/10/24 09/04/24 montelukast 10 mg tablet 10 mg PO HS 02/10/24 09/04/24 sertraline 100 mg tablet 150 mg PO DAILY 02/10/24 09/04/24 tirzepatide 2.5 mg/0.5 mL 2.5 mg subcut WEEKLY 02/10/24 09/04/24 subcutaneous pen injector (Hair) aspirin 325 mg tablet,delayed 325 mg PO DAILY ankle surgery 05/04/24 09/04/24 release docusate sodium 100 mg capsule 100 mg PO DAILY 05/04/24 09/04/24 duloxetine 30 mg capsule,delayed 30 mg PO BID 05/04/24 09/04/24 release esketamine 84 mg (28 mg x 3) nasal 84 mg intranasal DAILY 05/04/24 09/04/24 spray (Spravato) eszopiclone 2 mg tablet (Lunesta) 2 mg PO HS 05/04/24 09/04/24 ferrous sulfate 325 mg (65 mg 325 mg PO DAILY 05/04/24 09/04/24 iron) tablet (FeroSul) folic acid 1 mg tablet 1 mg PO DAILY 05/04/24 09/04/24 propranolol 20 mg tablet 20 mg PO BID 09/04/24 09/04/24 Allergies Allergy/AdvReac Type Severity Reaction Status Date / Time aripiprazole [From Abilify] AdvReac Intermediate Other Verified 09/04/24 10:39 lithium AdvReac Intermediate Other Verified 09/04/24 10:39 sulfamethoxazole AdvReac Intermediate Other Verified 09/04/24 10:39 [From Bactrim] trimethoprim [From Bactrim] AdvReac Intermediate Other Verified 09/04/24 10:39 Review of Systems Review of Systems: All systems reviewed & are unremarkable except as noted in HPI and below Constitutional: Constitutional: Reports no additional constitutional complaints Eyes: Eyes: Reports as per HPI, Denies blurry vision, Denies change in vision, Reports eye discharge, Reports irritation, Reports itchy eyes and Denies requires corrective lenses ENT: Reports system reviewed and no additional complaints, except as documented Cardiovascular: Cardiovascular: Reports no additional cardiovascular complaints Respiratory: Respiratory: Reports no additional respiratory complaints Gastrointestinal: Gastrointestinal: Reports no additional gastrointestinal complaints PMFSH Past Medical History Medical History Anxiety and depression Essential hypertension Hyperlipidemia Irritable bowel syndrome Migraine Morbid obesity with BMI of 40.0-44.9, adult Obstructive sleep apnea on CPAP PTSD (post-traumatic stress disorder) Surgical History Surgical History H/O lateral meniscus repair of right knee X3 History of ankle surgery Left ankle surgery April 2024 History of breast augmentation History of laparoscopic cholecystectomy History of tonsillectomy and adenoidectomy Status post ureteral reimplantation Right-sided 2020 Family History Family History Sibling End stage kidney disease Focal segmental glomerular sclerosis Unilateral congenital absence of kidney Father Hypertension Laryngeal cancer Continuous tobacco abuse Mother Diabet
== END 2024-09-04 11:04 | disposition home or self-care (01) ==
PROVIDERS: Emergency Provider Nurse Practitioner Family
DX: H10.89 Other conjunctivitis (principal); I10 Essential (primary) hypertension; E78.5 Hyperlipidemia, unspecified; Z79.899 Other long term (current) drug therapy; Z79.82 Long term (current) use of aspirin
CPT/HCPCS: 99213; G0463

== ENCOUNTER 2025-05-21 16:50 | Emergency (ER) | payer OTHER, SELFPAY ==
--- NOTE | 2025-05-21 16:51 | ED_ITS ---
HPI - Female Genitourinary General Chief complaint: Skin/Abscess/Foreign Body Stated complaint: Urogenital-Female Time Seen by Provider: 05/21/25 16:51 Source: patient Mode of arrival: ambulatory Limitations: no limitations History of Present Illness HPI Narrative: Joyce is a 39 year old female patient presenting to the clinic today with c/o possible abscess to the left lower genital area. She reports she noticed pain and swelling to this area 4-5 days ago. History of boils in the genital area. Is concerned that this may be HS. Area is only draining some serous fluid at this time. Has been applying witch Tory and the completing Sitz baths. Has seen dermatology in the past for this. No official diagnosis of HS. Related Data Home Medications ?Medication ?Instructions ?Recorded ?Confirmed ?Last Taken ?Type cetirizine 10 mg tablet (Zyrtec) 10 mg PO DAILY 02/10/24 09/04/24 Unknown History losartan 50 mg tablet 50 mg PO DAILY 02/10/24 09/04/24 Unknown History montelukast 10 mg tablet 10 mg PO HS 02/10/24 09/04/24 Unknown History duloxetine 30 mg capsule,delayed 30 mg PO BID 05/04/24 09/04/24 Unknown History release Allergies Allergy/AdvReac Type Severity Reaction Status Date / Time sulfamethoxazole (From Allergy Intermediate Other Verified 05/21/25 17:01 Bactrim) trimethoprim (From Bactrim) Allergy Intermediate Other Verified 05/21/25 17:01 aripiprazole (From Abilify) AdvReac Intermediate Other Verified 05/21/25 17:01 lithium AdvReac Intermediate Other Verified 05/21/25 17:01 Review of Systems Review of Systems: Pertinent positives per HPI. Patient denies any fever, chills, rash, headache, visual changes, dizziness, cough, runny nose, sore throat, shortness of breath, chest pain, palpitations, nausea, vomiting, diarrhea, constipation, abdominal pain. [facility] Past Medical History Medical History PTSD (post-traumatic stress disorder) Anxiety and depression Irritable bowel syndrome Hyperlipidemia Essential hypertension Migraine Morbid obesity with BMI of 40.0-44.9, adult Obstructive sleep apnea on CPAP Surgical History Surgical History History of breast augmentation History of tonsillectomy and adenoidectomy History of laparoscopic cholecystectomy Status post ureteral reimplantation Right-sided 2020 History of ankle surgery Left ankle surgery April 2024 H/O lateral meniscus repair of right knee X3 Family History Family History Sibling End stage kidney disease Focal segmental glomerular sclerosis Unilateral congenital absence of kidney Father Hypertension Laryngeal cancer Continuous tobacco abuse Mother Diabetes mellitus Social History Social History Social History: 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 She is single and lives alone with her pebble/Irish bulldog. She is a lifelong nonsmoker. She rarely drinks alcohol and only in small amounts. She denies illicit substance use. Code status: Full code Surrogate decision maker: Mother Smoking status: Never smoker Alcohol intake: never Substance use: never Do You Feel Safe in your Home?: Yes Lack of Transportation: No Lack of Food: Never True Current Housing: I Have Housing Concerned About Future Housing: No Difficulty Paying Gas/Electric Bills: No Difficulty Paying for Meds: No Currently Unemployed: No Education: Master's Degree or Higher Difficulty w/ Childcare or Family Care: No Spiritual care concerns: No Comments At the time of my signature, I reviewed and agree with the nursing past medical, surgical, social, and family history. There is no relevant family history pertinent to the patient complaint. Exam Narrative: General: Well-developed, morbidly obese, in no apparent distress Head: Normocephalic, atraumatic. Cardio: Regular rate and rhythm, s1 and s2 normal, no murmur appreciated. Resp: Clear to auscultation bilaterally, no rhonchi, rales, wheezing or rubs. Integumentary: Bivins, warm, and dry, tunnel like non fluctuant area to the left lower anogenital area, no active drainage, no redness or swelling noted, tenderness to palpation Course Course Emergency Course: Portions of this record may have been created with voice recognition software. Level of Care: Express Care Visit Vital Signs Vital signs: Vital Signs Temperature 36.4 C L 05/21/25 17:00 Pulse Rate 89 05/21/25 17:00 Respiratory Rate 18 05/21/25 17:00 Blood Pressure 122/76 05/21/25 17:00 Pulse Oximetry 99 05/21/25 17:00 Oxygen Delivery Room Air 05/21/25 17:00 Temperature 36.4 C L 05/21/25 17:00 Pulse Rate 89 05/21/25 17:00 Respiratory Rate 18 05/21/25 17:00 Blood Pressure 122/76 05/21/25 17:00 Pulse Oximetry 99 05/21/25 17:00 Oxygen Delivery Room Air 05/21/25 17:00 Vital signs reviewed MDM - Female Genitourinary MDM Narrative Medical decision making narrative: At the time of visit patient is resting comfortably on the exam table. Patient appears to be nontoxic. Patient has tunnel like knotted area to the left lower anogenital area, ttp, no redness or erythema Plan: I suspect patient has HS. Prescription for doxycycline and chlorhexidine wash was sent to the pharmacy. Supportive measures were discussed with the patient and they voiced understanding discharge instructions and agrees to treatment plan. Return precautions reviewed Differential Diagnosis Differential diagnosis: Likely other (Cellulitis, abscess, skin infection, HS, dermatitis, insect bite) Discharge Plan Discharge Clinical Impression: Hidradenitis suppurativa of anogenital region Patient Disposition: Home Condition: Stable Instructions: Antibiotic Form, Hidradenitis Suppurativa (ED) Additional Instructions: I suspect patient has likely hidradenitis suppurativa Use chlorhexidine wash daily as prescribed Take doxycycline as prescribed May continue sits baths May take Tylenol/Motrin as needed for pain Follow-up with your OBGYN or forest products gatherer in the next 2-3 days Patient Language: Italian Prescriptions: New doxycycline monohydrate 100 mg capsule 100 mg PO BID 7 Days Qty: 14 0RF chlorhexidine gluconate 4 % liquid 1 applic topical DAILY 7 Days Qty: 237 0RF Rx Instructions: wash daily in the genital area x 1 week No Action losartan 50 mg tablet 50 mg PO DAILY montelukast 10 mg tablet 10 mg PO HS cetirizine [Zyrtec] 10 mg Tablet 10 mg PO DAILY duloxetine 30 mg capsule,delayed release(DR/EC) 30 mg PO BID Follow-up/Referrals: UNKNOWN,DOCTOR [Non-Staff] - Time of Disposition: 17:11 Quality [facility] Nursing Documentation ED NIHSS nursing documentation: reviewed/agree
--- OUTSIDE RECORDS SUMMARY | 2025-05-21 16:53 | XMS_ITS | Encounter Summary ---
Author Organization [facility] Address [address] [place] [address] Care Team Providers Care Mortgage Originator Name Role Phone Adriano Dawson MD Unavailable [phone] Anusha Pinedo PA-Ce Unavailable [phone] Sherry Cary Unavailable Sherry Cary Primary Care Provider [phone] Encounter Details Date Type Department Care Team (Late st Contact Info) Description 04/16/2025 Results Follow-Up [facility] - DRAPERY MAKER [address] [place] [address] Rabia Rocha MD [address] [facility] [address] [place] [address] Social History Tobacco Use Types Packs/Day Years Used Date Smoking Tobacco: Never Smokeless Tobacco: Never Alcohol Use Standard Drinks/Week Comments Yes 0 (1 standard drink = 0.6 oz pur e alcohol) rarely AUDIT-C Answer Date Recorded Q1: How often do you have a drink containing alcohol? Never 09/30/2024 Q2: How many drinks containi ng alcohol do you have on a typical day when you are drinking? Patient does not drink Q3: How often do you have si x or more drinks on one occasion? Never 09/30/2024 PHQ-2 Answer Date Recorded Patient Health Questionnaire-2 Score 0 05/20/2024 Education Answer Date Recorded What is the highest level of school you have completed or the highest degree you have received? 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 Answer Date of Assessment Author No 09/30/2024 4:54 PM Ann Carvalho RN * Is person blind or have serious difficulty seeing? Answer Date of Assessment Author No 09/30/2024 4:54 PM Ann Carvalho RN * Does person have serious difficulty walking/climbing stairs? Answer Date of Assessment Author No 09/30/2024 4:54 PM Ann Carvalho RN * Does person have difficulty dressing/bathing? Answer Date of Assessment Author No 09/30/2024 4:54 PM Ann Carvalho RN * Does person have difficulty doing errands alone? Answer Date of Assessment Author No 09/30/2024 4:54 PM Ann Carvalho RN documented as of this encounter Mental Status * Does person have difficulty concentrating/remembering/making decisions? Answer Entry Date Author No 09/30/2024 4:54 PM Ann Carvalho RN documented in this encounter Plan of Treatment Upcoming Encounters Date Type Department Care Team (Late st Contact Info) Description 06/16/2025 9:00 AM CDT Office Visit [facility] - DRAPERY MAKER [facility] [address] [phone] Anusha Zhou MD [address] [place] [address] 07/29/2025 2:00 PM CDT Office Visit [facility] - Ophthalmology [address] [place] [phone] Mark Arnold, GONZALES [facility] [place] [phone] documented as of this encounter Goals Goal Patient Goal Type Associated Problems Recent Progress Patient-Stated? Author Increase daily physical activity Exercise On track( 024 9:23 AM HOME AGENT) No Darshana Jamison documented as of this encounter Visit Diagnoses Not on filedocumented in this encounter Care Teams Mortgage Originator Relationship Specialty Start Date End Date Sherry Cary APRN-CNP [address] [place] [phone] PCP - Attributed-[facility] STL 03/13/23 Sherry Cary APRN-CNP [address] [place] [phone] PCP - General Nurse Practitioner 09/17/24 Adriano Dawson MD Cardiovascular Disease 12/20/19 Anusha Pinedo PA-C [address] [place] [phone] Physician Structural Analyst Nephrology 02/10/23 documented as of this encounter
--- OUTSIDE RECORDS SUMMARY | 2025-05-21 16:53 | XMS_ITS | Encounter Summary ---
Author Organization [facility] Address [address] [place] [address] Care Team Providers Care Nurse Licensed Practical Name Role Phone Adriano Dawson MD Unavailable [phone] Sherry Cary APRN-ACID TANK LINER Primary Care Provider [phone] Anusha Pinedo PA-C Unavailable Sherry Cary APRN-ACID TANK LINER Unavailable Sherry Cary GROUP EXERCISE INSTRUCTOR-ACID TANK LINER Primary Care Provider [phone] Encounter Details Date Type Department Care Team (Late st Contact Info) Description 06/02/2023 Telephone [facility] - Orthopedics [address] [place] [address], [place] [address] Antwan Patrick MD [address] [place] [address] [place] [address] Social History Tobacco Use Types Packs/Day Years Used Date Smoking Tobacco: Never Smokeless Tobacco: Never Alcohol Use Standard Drinks/Week Comments Yes 0 (1 standard drink = 0.6 oz pur e alcohol) rarely PHQ-2 Answer Date Recorded PHQ2 TOTAL SCORE 4 05/09/2023 Education Answer Date Recorded What is the [...] file Not on file Not on file COVID-19 Exposure Response Date Recorded In the last 10 days, have juanito smart been in contact with someone who was confirmed or suspected to have Coronavirus/COVID-19? No / Unsure 05/19/2023 5:03 PM CDT documented as of this encounter Miscellaneous Notes * Telephone Encounter - Madan Garcia - 06/02/2023 2:50 PM CDT Good afternoon, I have a Pt who states her legs are in pain and requesting a medication refill. ThePt [place] a flight at [employer] today and would like it before leaving if possible. Madan Conti documented in this encounter Plan of Treatment Upcoming Encounters Date Type Department Care Team (Late st Contact Info) Description 06/16/2025 9:00 AM CDT Office Visit [facility] - CREDIT RISK OFFICER [address] [place] [phone] Anusha Zhou MD [address] [place] [address] 07/29/2025 2:00 PM CDT Office Visit [facility] - Ophthalmology [address] [place] [phone] Mark Arnold OD [address] [place] [phone] documented as of this encounter Goals Goal Patient Goal Type Associated Problems Recent Progress Patient-Stated? Author Increase daily physical activity Exercise On track( 024 9:23 AM ON SITE MANAGER) No Darshana Jamison documented as of this encounter Visit Diagnoses Not on filedocumented in this encounter Additional Health Concerns Infection Onset Date Last Indicated Resolved Time COVID-19 Under Investigation 09/01/2024 09/01/2024 09/01/2024 5:59 PM CDT documented as of this encounter Care Teams Nurse Licensed Practical Relationship Specialty Start Date End Date Pepper, Sherry, GROUP EXERCISE INSTRUCTOR-ACID TANK LINER PCP - General 01/04/23 09/16/24 Sherry Cary APRN-CNP [address] [place] [phone] PCP - Attributed-[facility]HP STL 03/13/23 Sherry Cary APRN-CNP [address] [place] [phone] PCP - General Nurse Practitioner 09/17/24 Adriano Dawson MD Cardiovascular Disease 12/20/19 Anusha Pinedo PA-C [address] [place] [phone] Physician Bone Glue Maker Nephrology 02/10/23 documented as of this encounter
--- OUTSIDE RECORDS SUMMARY | 2025-05-21 16:53 | XMS_ITS | Encounter Summary ---
Author Organization [facility] Address [address] [place] [address] Care Team Providers Care Rag Cutting Machine Operator Name Role Phone Unavailable Primary Care Provider Unavailabl e Prior Encounters Date Type Department Care Team Description 12/02/2019 Converted CPS Chart Documents [facility] [address] [place] [address] <No scans attached> 12/02/2019 Converted 13x Documents [facility] [address] [place] [address] <No scans attached> Plan of Treatment Not on file Procedures Procedure Name Priority Date/Time Associated Diagnosis Comments CANCELLED APPOINTMENT Routine 07/22/2020 2:00 AM CDT FM BLEACH IN-OFFICE Routine 04/23/2020 2 :00 AM CDT CANCELLED APPOINTMENT Routine 04/13/2020 2:00 AM CDT ORAL HYGIENE INSTRUCTIONS Routine 2019 2:00 AM CDT TOPICAL APPLICATION OF FLUORIDE VARNISH Routine 01/22/2020 2:00 AM CDT PROPHYLAXIS - ADULT Routine 01/22/2020 2 :00 AM CDT COMPREHENSIVE ORAL EVALUATION - NEW OR ESTABLISHED PATIENT Routine 01/22/2020 2:00 AM CDT PANORAMIC RADIOGRAPHIC IMAGE Routine 01/22/2020 2:00 AM CDT INTRAORAL - COMPREHENSIVE SERIES OF RADIOGRAPHIC IMAGES Routine 01/22/2020 2:00 AM CDT INTRAORAL PHOTO Routine 01/22/2020 2:00 AM CDT INTRAORAL PHOTO Routine 01/22/2020 2:00 AM CDT INTRAORAL PHOTO Routine 01/22/2020 2:00 AM CDT INTRAORAL PHOTO Routine 01/22/2020 2:00 AM CDT Visit Diagnoses Not on file
--- OUTSIDE RECORDS SUMMARY | 2025-05-21 16:53 | XMS_ITS | Encounter Summary ---
Author Organization [facility] Address [address] [place] [address] Care Team Providers Care Faculty Administrator Name Role Phone Adriano Dawson MD Unavailable [phone] Anusha Pinedo PA-C Unavailable Sherry Cary Unavailable Sherry Cary Primary Care Provider [phone] Encounter Details Date Type Department Care Team (Late st Contact Info) Description 10/03/2024 Telemedicine [facility] - Orthopedic Surgery [address] [place] [address] [place] [address] [facility] [address] [address] [place] [address] Postoperative dehiscence of skin wound, initial encounter Social History Tobacco Use Types Packs/Day Years Used Date Smoking Tobacco: Never Smokeless Tobacco: Never Alcohol Use Standard Drinks/Week Comments Not Currently 0 (1 standard drink = 0.6 oz [...] CDT Office Visit [facility] - CARCASS TRIMMER [address] [phone] Anusha Zhou MD [address] [place] [address] 07/29/2025 2:00 PM CDT Office Visit [facility] - Ophthalmology [address] [place] [phone] Mark Arnold, GONZALES [address] [place] [phone] documented as of this encounter Goals Goal Patient Goal Type Associated Problems Recent Progress Patient-Stated? Author Increase daily physical activity Exercise On track( 024 9:23 AM INSIDE HORTICULTURAL SPECIALTY GROWER) No ShaheenDarshana documented as of this encounter Visit Diagnoses Diagnosis Postoperative dehiscence of skin wound, initial encounter- Primary documented in this encounter Care Teams Faculty Administrator Relationship Specialty Start Date End Date Sherry Cary APRN-CNP [address] [place] [address] PCP - Attributed-[facility] EHP STL 03/13/23 Sherry Cary APRN-CNP [address] [place] [address] PCP - General Nurse Practitioner 09/17/24 Adriano Dawson MD Cardiovascular Disease 12/20/19 Anusha Pinedo PA-C [address] [place] [address] Physician Cardroom Supervisor Nephrology 02/10/23 documented as of this encounter
--- OUTSIDE RECORDS SUMMARY | 2025-05-21 16:53 | XMS_ITS | Encounter Summary ---
Author Organization [facility] Address [address] [place] [address] Care Team Providers Care Automotive Teacher Name Role Phone Sherry Cary Primary Care Provider [phone] Adriano Dawson MD Unavailable [phone] Lelo Broussard MD Primary Care Provide r Sherry Cary Primary Care Provider [phone] Lelo Broussard MD Primary Care Provide r Sherry Cary Primary Care Provider [phone] Anusha Pinedo PA-C Unavailable Sherry Cary Unavailable Sherry Cary Primary Care Provider Encounter Details Date Type Department Care Team (Late st Contact Info) Description 12/24/2019 Telephone [facility] [address] [place] [address] Shaheen Ruano MD [address] [place] [address] Social History Tobacco Use Types Packs/Day Years Used Date Smoking Tobacco: Never Smokeless Tobacco: Never Alcohol Use Standard Drinks/Week Comments Yes 0 (1 standard drink = 0.6 oz pur e alcohol) rare ETOH Comments No Sex and Gender Information Value Date Recorded Sex Assigned at Not on file Legal Sex Female 9:50 AM CDT Gender Identity Not on file Sexual Orientation Not on file 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 She has a referral and the OK from Dr. Ruano to be scheduled, but I cannot access and available time slots here. Patient is requesting a call back to schedule. RY MANAGER documented in this encounter Plan of Treatment Upcoming Encounters Date Type Department Care Team (Late st Contact Info) Description 06/16/2025 9:00 AM CDT Office Visit [facility] - LPN INSTRUCTOR [address] [place] [phone] Anusha Zhou MD [address] [place] [address] 07/29/2025 2:00 PM CDT Office Visit [facility] - Ophthalmology [address] [place] [phone] Mark Arnold OD [address] [place] [phone] documented as of this encounter Goals Goal Patient Goal Type Associated Problems Recent Progress Patient-Stated? Author Increase daily physical activity Exercise On track( 024 9:23 AM SALARY MANAGER) No Darshana Jamison documented as of this encounter Visit Diagnoses Not on filedocumented in this encounter Additional Health Concerns Infection Onset Date Last Indicated Resolved Time COVID-19 Under Investigation 09/01/2024 09/01/2024 09/01/2024 5:59 PM CDT documented as of this encounter Care Teams Automotive Teacher Relationship Specialty Start Date End Date Sherry Cary APRN-CNP PCP - General 07/29/19 11/23/22 Lelo Broussard MD [address] [place] [address] PCP - General 11/24/22 12/17/22 Sherry Cary APRN-CNP [address] [place] [address] PCP - General Nurse Practitioner 12/18/22 01/02/23 Lelo Broussard MD [address] [place] [address] PCP - General 01/03/23 01/03/23 Sherry Cary APRN-CNP [address] [place] [address] PCP - General 01/04/23 09/16/24 Sherry Cary APRN-CNP [address] [place] [phone] PCP - Attributed-[facility] EHP STL 03/13/23 Sherry Cary APRN-CNP [address] [place] [phone] PCP - General Nurse Practitioner 09/17/24 Adriano Dawson MD Cardiovascular Disease 12/20/19 Anusha Pinedo PA-C [address] [place] [address] Physician Branch Sales And Service Representative Nephrology 02/10/23 documented as of this encounter
--- OUTSIDE RECORDS SUMMARY | 2025-05-21 16:53 | XMS_ITS | Clinical Summary ---
Author Organization [facility] Address [address] [place] [address] Care Team Providers Care Batch Records Clerk Name Role Phone Adriano Dawson MD Unavailable [phone] Anusha Pinedo PA-C Unavailable [phone] Sherry Cary Unavailable [phone] Sherry Cary Primary Care Provider [phone] Source Comments [facility],non-owned Affiliates and Associated Physician Practices is amultiple site organization consisting of ambulatory clinics and hospital sitesin [place], [place], [place] and [place]. This disclosure is being madepursuant to the Care Everywhere program and may not contain all information available regarding this patient. 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 Alwaysverify current medications with the patient. rizatriptan, disintegrating, (Maxalt BIOLOGY SPECIALIST) 10 MG tablet Take 1 (one) tablet by mouth as needed 3 Active montelukast (Singulair) 10 MG tabletIndicatio ns:Allergy, sequela TAKE 1 TABLET BY MOUTH EVERY DAY 90 tablet 4 4 Active minoxidil (Rogaine Extra Strength) 5 % foamIndications :Androgenetic Alopecia Apply to affected area once daily Reasons: Male Pattern Baldness 60 g 1 4 Active ALPRAZolam (Xanax) 0.5 MG tablet Take 1 (one) tablet by mouth once daily as needed For anxiety. 5 Active gabapentin (Neurontin) 300 MG capsule Take 1 (one) capsule by mouth 3 times daily 5 Active Ryaltris 665-25 MCG/ACT SUSP Trinity 2 sprays into each nostril 2 times daily 5 Active DULoxetine (Cymbalta) 60 MG capsule Take 1 (one) capsule by mouth once daily 5 Active propranolol (Inderal) 80 MG tablet Take 1 (one) tablet by mouth once daily 5 Active norethindrone 0.35 MG tablet Take 1 (one) tablet by mouth once daily 90 tablet 4 5 Active Additional Information Patient not taking.Reported on 01/29/2025 Active Problems Problem Noted Date Diagnosed Date Left ankle instability 04/23/2024 Complex tear of medial menis cus of knee as current injury, subsequent encounter 06/05/2023 Iron deficiency anemia due to chronic blood loss 05/09/2023 COVID-19 cesar white manifesting chronic fatigue 02/02/2023 Chronic fatigue 02/02/2023 Brain fog 02/02/2023 Word finding difficulty 02/02/2023 Superior glenoid labrum lesion of right shoulder 10/11/2021 Irregular menses 10/20/2020 IBS (irritable bowel syndrome) 05/12/2020 Depression 05/12/2020 Class 3 severe obesity due t o excess calories without serious comorbidity with body mass index (BMI) of 40.0 to 44.9 in adult 10/14/2019 AURA on CPAP 10/14/2019 Anxiety disorder Resolved Problems Problem Noted Date Diagnosed Date Resolved Date Sleep related hypoxia 02/02/20232022 Encounters Date Type Department Care Team Description 05/11/2025 Results Follow-Up [facility] - Urology [address] [place] [address] Jimy Edgar MD 05/08/2025 10:46 AM CDT - 05/13/2025 11:59 PM CDT Hospital Encounter [facility] - Nuclear Medicine [address] [place] [address] Jimy Edgar MD Discharge Disposition: Home or Self Care 05/02/2025 Orders Only [facility] - Urology [address] [place] [address] Haley Venegas LPN Ureteral stricture, right ; Right flank pain 04/24/2025 3:18 PM CDT - 04/24/2025 11:59 PM CDT Hospital Encounter [facility] CAT SCAN [address] [place] [address] Jimy Edgar MD Discharge Disposition: Home or Self Care 04/24/2025 Travel 04/16/2025 12:51 PM CDT - 04/16/2025 11:59 PM CDT Hospital Encounter [facility] Imaging Services - Ultrasound [address] [place] [address] Rabia Rocha MD Discharge Disposition: Home or Self Care 04/16/2025 Results Follow-Up [facility] - [facility] [address] [address] [place] [address] Rabia Rocha MD 04/14/2025 Travel 04/01/2025 Telephone [facility] - Family Medicine [address] [facility] [address] [place] [address] Sherry Cary APRN-BOILER [employer]PERAT[employer] SUPERVISOR Refill Request (Has been taking mounjaro with success has had lapse in care and would like to start back to 2.5 mg dose to send to [place] pharmacy. ) 04/01/2025 Orders Only [facility] - Family Medicine [address] [facility] [facility] [address] [place] [address] Sherry Cary APRN-RICKY from Last 3 Months Immunizations Immunization Administration Dates Next Due COVID PFIZER BIVALENT 12Y+ 30mcg/0.3ML Human Papilloma Virus Ninevalent Vaccine 020,12/13/2019,09/24/2019 INFLUENZA VACCINE, CELL CULT URE, QUADR. (FLUCELVAX QUADRIVALENT; 6MO+) (CCIIV4) 09/20/2022,08/16/2020 INFLUENZA VACCINE, QUADR. (F LUZONE; FLULAVAL; FLUARIX; AFLURIA QUADRIVALENT; 6MO+), 0.5 ML (IIV4) 09/05/2023 PNEUMOCOCCAL PCV20 CONJ VAC IM 09/20/2022 TDAP (7yrs+) 01/10/2025,04/21/2020 Family History Medical History Relation Name Comments Alcohol abuse Brother 1 Hypertension Brother 1 Other - Pulmonary/Lung Brother 1 smoke r Hypertension Brother 2 Other Brother 2 pancreatic insu fficiency Other - Pulmonary/Lung Brother 2 smoke r Other - Pulmonary/Lung Brother 3 smoke r Cancer - Other Father larengeal pas sed at 68 yo Hypertension Father Anxiety Disorder Mother Depression Mother Diabetes - Type 2 Mother Hyperlipidemia Mother Hypertension Mother Sleep Disorder - Sleep apnea Mother Renal Disease Sister 48 FSGS Asthma Neg Hx CVA Neg Hx Cancer - Breast Neg Hx Cancer - Skin, Non Melanoma Neg Hx Eczema Neg Hx Hemophilia Neg Hx Psoriasis Neg Hx Relation Name Status Comments Brother 1 Alive Brother 2 Alive Brother 3 Alive Father Mother Alive Sister 48 Social History Tobacco Use Types Packs/Day Years Used Date Smoking Tobacco: Never Smokeless Tobacco: Never Tobacco Cessation:Counseling Given: No Alcohol Use Standard Drinks/Week Comments Yes 0 [...] file Not on file Not on file Last Filed Vital Signs Vital Sign Reading Time Taken Comments Blood Pressure 102/70 01/29/2025 3:35 PM CDT Pulse 93 01/10/2025 9:23 AM GENERAL OFFICE ASSISTANT Temperature 36.8 C (98.2 F) 01/10/2025 9:23 AM GENERAL OFFICE ASSISTANT Respiratory Rate 18 01/10/2025 9:23 AM GENERAL OFFICE ASSISTANT Oxygen Saturation 100% 01/10/2025 9:23 AM GENERAL OFFICE ASSISTANT Inhaled Oxygen Concentration - - Weight 127.6 kg (281 lb 3.2 oz) 01/29/2025 3:35 PM CDT Height 182.9 cm (6') 01/29/2025 3:35 PM CDT Body Mass Index 38.14 01/29/2025 3:35 PM CDT Plan of Treatment Upcoming Encounters Date Type Department Care Team (Late st Contact Info) Description 06/16/2025 9:00 AM CDT Office Visit [facility] [address] [phone] Anusha Zhou MD [facility] [address] [address] 07/29/2025 2:00 PM CDT Office Visit [facility] [place] [phone] Mark Arnold, GONZALES [address] [place] [address] Health Maintenance Due Date Last Done Comments HEPATITIS B VACCINE (1 of 3 - 19+ 3-dose series) 2002 DEPRESSION SCREENING 11/13/2024 05/20/2024, 09/19/2023, 09/19/2023, Additional history exists INFLUENZA VACCINE (#1) 2025 , 09/05/2023, 09/20/2022, Additional history exists MAMMOGRAM 06/07/2026 06/07/2024, 11/25/2019 SCREENING FOR DIABETES 10/04/2027 , 09/01/2024, 02/23/2024, Additional history exists PAP with HPV 03/23/2028 03/23/2023, 09/24/2019 LIPID TESTING 02/22/2029 02/23/2024, 12/15, 05/09/2023, Additional history exists ZOSTER VACCINE (1 of 2) 2033 DTAP/TDAP/TD VACCINES (3 - Td or Tdap) 01/10/2035 01/10/2025, 04/21/2020 HPV VACCINE Completed 04/21/2020, 11/15, 09/24/2019 PNEUMOCOCCAL VACCINE Aged Out 09/20/2022 No long er eligible based on patient's age to complete this topic HEPATITIS C SCREENING Completed 07/26/2024 , 02/23/2024, 09/20/2022, Additional history exists COVID-19 VACCINE Completed 08/16/2024, 06/2022, 08/12/2021, Additional history exists HIV SCREENING Completed 10/16/2024, 07/14, 02/23/2024 HIB VACCINE Aged Out No longer eligi ble based on patient's age to complete this topic MENINGOCOCCAL (Group B) VACCINE SHARED DECISION-MAKING Aged Out No longer eligible based on patient's age to complete this topic MENINGOCOCCAL GROUPS A/C/Y/W VACCINE Aged Out No longer eligible based on patient's age to complete this topic Goals Goal Patient Goal Type Associated Problems Recent Progress Patient-Stated? Author Increase daily physical activity Exercise On track( 024 9:23 AM GENERAL OFFICE ASSISTANT) Darshana Rodriguez Medical Devices Implanted Type Area Braille Operator Device Identifier Shelf Expiration Date Model / Serial / Lot [place] Sut Dx Fibertak Ndl Strl Lf - Sn/A Implanted:Qty: 2 on 04/26/2024 by Kristin Vargas MD at [facility] Left: Ankle [employer] 12/13/2028 [id number] / N/A / [id number] Kit Arthsc Fx 4.75mm 3.5mm Internalbrace - Sn/A Implanted:Qty: 1 on 04/26/2024 by Kristin Vargas MD at [facility] Left: Ankle [employer] 02/10/2026 [id number] P / N/A / [id number] Wire K .045in 6in 2 Troc Pnt Smth Ss Fx - Sn/A Implanted:Qty: 1 on 04/26/2024 by Kristin Vargas MD at [facility] Left: Ankle [employer] 03/25/2028 1600-645 / N/A / [id number] Procedures Procedure Name Priority Date/Time Associated Diagnosis Comments NM RENAL SCAN W DRUG Routine 05/08/2025 1:03 PM CDT Ureteral stricture, right Right flank pain CT UROGRAM Routine 04/24/2025 4:03 PM CDT Right flank pain CREATININE - POCT INTERFACED Routine 04/24/2025 3:28 PM CDT US PELVIS W TRANSVAG W DOP NON OB Routine 04/16/2025 1:46 PM CDT Pelvic pain HIV-1 HIV-2 ANTIBODY + HIV P24 AG PANEL Routine 10/16/2024 4:09 PM GENERAL OFFICE ASSISTANT Screen for STD (sexually transmitted disease) GLUCOSE - POINT OF CARE Routine 10/04/2024 10:52 AM GENERAL OFFICE ASSISTANT HEPATITIS C AB SCREEN RFLX NAAT QUANT Routine 07/26/2024 7:45 PM CDT Screen for STD (sexually transmitted disease) MAMMO BILAT IMPLANT DX W VOLODYMYR Routine 06/07/2024 1:36 PM CDT Retraction of left nipple LIPID PROFILE Routine 02/23/2024 1:09 PM CDT Obesity (BMI 30-39.9) HPV DETECTION HIGH RISK DAVID Routine 03/23/2023 2:27 PM CDT Well woman exam with routine gynecological exam from Last 3 Months or Most Recently Relevant to Health Maintenance Results * NM Renal Scan W Drug (05/08/2025 1:03 PM CDT) Anatomical Region Laterality Modality Abdomen Nuclear Medicine 05/08/2025 1:10 PM CDT Impressions 05/08/2025 1:17 PM CDT Impression: 1. Normal function of both kidneys without evidence of obstruction. There is overall better function in the the left kidney compared to the right. 2. Differential function is 67% for the left kidney and 33% for the right kidney. > Interpreting Provider: Neli Hannah DO on 05/08/2025 1:17 PM Narrative 05/08/2025 1:17 PM CDT PROCEDURE: NM RENAL SCAN W DRUG DATE/TIME OF EXAM: 05/08/2025 1:03 PM CLINICAL INFORMATION: None relevant/not provided if blank. Indication: N13.5: Ureteral stricture, right R10.9: Right flank pain COMPARISON: CT dated 04/24/2025 History: 39-year-old with right flank pain and history of ureteral stricture concerning for UPJ obstruction. Technique: 10.94 mCi of Tc-99m MAG3 was administered IV. Sequential dynamic blood flow images of the abdomen were obtained in the anterior and posterior projections for 30 minutes following radiotracer injection. 40.0 mg Lasix was injected IV after the last image, followed by an additional 30 minutes of dynamic image acquisition. Whole kidney time-activity curves were produced with quantitative indices. Findings: Blood flow images reveal normal perfusion to the left kidney and slightly reduced perfusion to the right kidney. The kidneys are normal in size and contours. There is prompt uptake and excretion of the tracer bilaterally with greater uptake within the left kidney compared to the right. Post-Lasix images demonstrate continued clearance of the residual tracer from both kidneys. The quantitative values are as follows: Quantitative function Left Right Renography 3 5 Peak time (min) 9 14 Half peak time (min) 67 33 Differential function (%) Lasix renography Left Right 9 8 Half-peak time (min) Procedure Note Neli Hannah DO - 05/08/2025 PROCEDURE: NM RENAL SCAN W DRUG DATE/TIME OF EXAM: 05/08/2025 1:03 PM CLINICAL INFORMATION: None relevant/not provided if blank. Indication: N13.5: Ureteral stricture, right R10.9: Right flank pain COMPARISON: CT dated 04/24/2025 History: 39-year-old with right flank pain and history of ureteral stricture concerning for UPJ obstruction. Technique: 10.94 mCi of Tc-99m MAG3 was administered IV. Sequential dynamic blood flow images of the abdomen were obtained in the anteriorand posterior projections for 30 minutes following radiotracer injection.40.0 mg Lasix was injected IV after the last image, followed by an [id number] minutes of dynamic image acquisition. Whole kidney time-activity curves were produced with quantitative indices. Findings: Blood flow images reveal normal perfusion to the left kidney andslightly reduced perfusion to the right kidney. The kidneys are normal in sizeand contours. There is prompt uptake and excretion of the tracer bilaterally with greater uptake within the left kidney compared to the right. Post-Lasix images demonstrate continued clearance of the residual tracer from both kidneys. The quantitative values are as follows: Quantitative function Left Right Renography 3 5 Peak time (min) 9 14 Half peak time (min) 67 33 Differential function (%) Lasix renography Left Right 9 8 Half-peak time (min) Impression: 1. Normal function of both kidneys without evidence of obstruction.There is overall better function in the the left kidney compared to the right. 2. Differential function is 67% for the left kidney and 33% for theright kidney. > Interpreting Provider: Neli Hannah DO on 05/08/2025 1:17 PM us Jimy HANSEN ORDERABLES Final Resul t * CT Urogram (04/24/2025 4:03 PM CDT) Anatomical Region Laterality Modality Abdomen, Pelvis Computed Tomogra phy 04/25/2025 1:05 AM CDT Impressions 04/25/2025 1:14 AM CDT Impression: 1.Postsurgical changes related to right ureteric reimplantation into the bladder. There appears to be focal infiltrate wall thickening in the region of the reimplant at the right ureterovesicular junction raising possibility of underlying stricture. 2.Resulting in mild right hydroureteronephrosis. Mild ureteric wall thickening and increased enhancement may represent underlying ureteritis. 3.Mild bladder wall thickening may represent underlying cystitis. 4.Marked atrophy and scarring involving the right kidney. > Interpreting Provider: Chrsi Granado on 04/25/2025 1:14 AM Narrative 04/25/2025 1:14 AM CDT PROCEDURE: CT UROGRAM DATE/TIME OF EXAM: 04/24/2025 4:04 PM CLINICAL INFORMATION: None relevant/not provided if blank. Indication: R10.9: Right flank pain Additional History: ADDITIONAL CLINICAL INFORMATION: Ordering Provider Reason For Exam: right flank pain, rule out obstruction or hydronephrosis, s/p right ureteral reimplant 2020 Technologist Note: Additional: COMPARISON: CT adrenals 04/30/2020. TECHNIQUE: CT of the abdomen and pelvis was performed before and following the uneventful administration of 100 mL of Isovue 370 intravenous contrast according to urogram protocol. Findings: Lower Chest: Normal. Liver: Geographic area of decreased enhancement involving segment IVb may represent focal fat. Liver appears otherwise within normal limits. Gallbladder and Bile Ducts: The gallbladder is absent. Spleen: Normal. Pancreas: Normal. Adrenals: Normal. Kidneys: Marked right renal scarring and cortical atrophy and thinning. Mild right hydronephrosis and mildly dilated right ureter with increased enhancement of the ureteric wall. There is associated post surgical changes related to right ureteric implantation into the bladder. There is marked ureteric wall thickening focally in the region of the right ureterovesicular junction raising possibility of underlying stricture. No calcified stones noted in either kidney. No left hydronephrosis. Bladder: Contracted urinary bladder with markedly thickened wall. Gastrointestinal: The stomach and visualized loops of small bowel are unremarkable. Colonic diverticulosis without evidence of diverticulitis is seen. Normal appendix. Mesentery/Peritoneum/Retroperitoneum: Normal. Reproductive Organs: Calcified fibroids present within the uterus. Vasculature: No vascular abnormality is present. Bones: Bone windows demonstrate no suspicious lytic or blastic lesions. The visible osseous structures are intact. Degenerative changes are seen in the spine. Soft tissues: Partially visualized bilateral breast implants. Procedure Note Chris Granado MD - 04/25/2025 PROCEDURE: CT UROGRAM DATE/TIME OF EXAM: 04/24/2025 4:04 PM CLINICAL INFORMATION: None relevant/not provided if blank. Indication: R10.9: Right flank pain Additional History: ADDITIONAL CLINICAL INFORMATION: Ordering Provider Reason For Exam: right flank pain, rule outobstruction or hydronephrosis, s/p right ureteral reimplant 2020 Technologist Note: Additional: COMPARISON: CT adrenals 04/30/2020. TECHNIQUE: CT of the abdomen and pelvis was performed before andfollowing the uneventful administration of 100 mL of Isovue 370 intravenouscontrast according to urogram protocol. Findings: Lower Chest: Normal. Liver: Geographic area of decreased enhancement involving segment IVbmay represent focal fat. Liver appears otherwise within normal limits. Gallbladder and Bile Ducts: The gallbladder is absent. Spleen: Normal. Pancreas: Normal. Adrenals: Normal. Kidneys: Marked right renal scarring and cortical atrophy and thinning. Mild right hydronephrosis and mildly dilated right ureter with increased enhancement of the ureteric wall. There is associated post surgicalchanges related to right ureteric implantation into the bladder. There is marked ureteric wall thickening focally in the region of the right ureterovesicular junction raising possibility of underlying stricture.No calcified stones noted in either kidney. No left hydronephrosis. Bladder: Contracted urinary bladder with markedly thickened wall. Gastrointestinal: The stomach and visualized loops of small bowel are unremarkable. Colonic diverticulosis without evidence of diverticulitisis seen. Normal appendix. Mesentery/Peritoneum/Retroperitoneum: Normal. Reproductive Organs: Calcified fibroids present within the uterus. Vasculature: No vascular abnormality is present. Bones: Bone windows demonstrate no suspicious lytic or blastic lesions.The visible osseous structures are intact. Degenerative changes are seen inthe spine. Soft tissues: Partially visualized bilateral breast implants. Impression: 1.Postsurgical changes related to right ureteric reimplantation into the bladder. There appears to be focal infiltrate wall thickening in theregion of the reimplant at the right ureterovesicular junction raisingpossibility of underlying stricture. 2.Resulting in mild right hydroureteronephrosis. Mild ureteric wall thickening and increased enhancement may represent underlyingureteritis. 3.Mild bladder wall thickening may represent underlying cystitis. 4.Marked atrophy and scarring involving the right kidney. > Interpreting Provider: Chris Granado on 04/25/2025 1:14 AM us Jimy Edgar MD CT ORDERABLES Final Resul t * (ABNORMAL) CREATININE - POCT INTERFACED (04/24/2025 3:28 PM CDT) Creatinine POCT 1.05 0.30 - 1.30 mg/dL 04/30/2025 7:40 AM CDT [facility] eGFR 68(L) >=90 mL/min/1.7 3 m2 04/30/2025 7:40 AM CDT [facility] Blood BLOOD SPECIMEN / Unknown 04/24/2025 3:28 PM CDT 04/30/2025 7:40 AM CDT us Jimy Edgar MD LAB - POINT OF CARE ORDERAB LES Final Result [facility] [address] [place] [phone], [facility] [phone] * US Pelvis W Transvag W Dop Non Ob (04/16/2025 1:46 PM CDT) Anatomical Region Laterality Modality Pelvis Ultrasound 04/16/2025 2:39 PM CDT Impressions 04/16/2025 2:44 PM CDT IMPRESSION: 1. Lower uterine segment fibroid. 2. Moderate size but simple left ovarian cyst > Interpreting Provider: Kishore Rojas MD on 04/16/2025 2:44 PM Narrative 04/16/2025 2:44 PM CDT PROCEDURE: US PELVIS W TRANSVAG W DOP NON OB DATE/TIME OF EXAM: 04/16/2025 1:46 PM CLINICAL INFORMATION: None relevant/not provided if blank. Indication: R10.2: Pelvic pain Additional History: COMPARISON: Renal ultrasound from 06/27/2023 TECHNIQUE: Real time transabdominal and transvaginal pelvic ultrasound was performed by the pick and shovel man with DICOM image capture. Grayscale images were obtained; additionally, Color Doppler and pulse wave Spectral Doppler interrogation was performed and interpreted. FINDINGS: The uterus measures 7.2 x 3.3 x 4.7 cm. There is a 3 x 3 x 3.1 cm lower uterine segments myometrial mass most consistent with fibroid. There are a few punctate myometrial calcifications which should be incidental. The endometrium is best seen transvaginally measuring 4 to 5 mm which is normal for age. Cervix is unremarkable. The right ovary measures 3.5 x 1.9 x 2.2 cm and is unremarkable except for incidental focal calcification. The ovary is normally perfused as seen on color Doppler with spectral analysis. The left ovary measures 6.2 x 1.8 x 3.4 cm and contains an anechoic thin-walled cyst measuring 4.2 x 1.8 x 2.8 cm. The ovaries normally perfused as seen on color Doppler with spectral analysis. There is no free fluid. The urinary bladder is unremarkable. Procedure Note Kishore Rojas MD - 04/16/2025 PROCEDURE: US PELVIS W TRANSVAG W DOP NON OB DATE/TIME OF EXAM: 04/16/2025 1:46 PM CLINICAL INFORMATION: None relevant/not provided if blank. Indication: R10.2: Pelvic pain Additional History: COMPARISON: Renal ultrasound from 06/27/2023 TECHNIQUE: Real time transabdominal and transvaginal pelvic ultrasound wasperformed by the pick and shovel man with DICOM image capture. Grayscale images were obtained; additionally, Color Doppler and pulse wave Spectral Doppler interrogation was performed and interpreted. FINDINGS: The uterus measures 7.2 x 3.3 x 4.7 cm. There is a 3 x 3 x 3.1 cm lower uterine segments myometrial mass most consistent with fibroid. There area few punctate myometrial calcifications which should be incidental. The endometrium is best seen transvaginally measuring 4 to 5 mm which isnormal for age. Cervix is unremarkable. The right ovary measures 3.5 x 1.9 x 2.2 cm and is unremarkable exceptfor incidental focal calcification. The ovary is normally perfused as seenon color Doppler with spectral analysis. The left ovary measures 6.2 x 1.8 x 3.4 cm and contains an anechoic thin-walled cyst measuring 4.2 x 1.8 x 2.8 cm. The ovaries normally perfused as seen on color Doppler with spectral analysis. There is no free fluid. The urinary bladder is unremarkable. IMPRESSION: 1. Lower uterine segment fibroid. 2. Moderate size but simple left ovarian cyst > Interpreting Provider: Kishore Rojas MD on 04/16/2025 2:44 PM Result [facility] Rabia Rocha MD US ORDERABLES Final Result * HIV-1 HIV-2 ANTIBODY + HIV P24 AG PANEL (10/16/2024 4:09 PM GENERAL OFFICE ASSISTANT) Pathologist [facility] HIV Antigen/Antibod y 1 & 2 Non-reacti ve Non-react kati 10/16/2024 5:11 PM GENERAL OFFICE [facility] Comment:No Laboratory eviden ce of HIV infection. Blood BLOOD SPECIMEN / Unknown Lab Venipuncture / Unknown 10/16/2024 4:09 PM GENERAL OFFICE ASSISTANT 10/16/2024 4:27 PM GENERAL OFFICE ASSISTANT Result [facility] Sherry Cary APRN-BOILER OPERATORS SUPERVISOR LAB - CHEMISTRY ORDERABLE S Final Result [facility] [address] [place] [address], [facility] [phone] * (ABNORMAL) GLUCOSE - POINT OF CARE (10/04/2024 10:52 AM GENERAL OFFICE ASSISTANT) [facility] Glucose WB/POC 122(H) 70 - 99 mg/dL 10/04/2024 11:32 AM GENERAL OFFICE ASSISTANT [facility] Specimen Type Cap Fingerstick 2023 11:32 AM GENERAL OFFICE ASSISTANT [facility] Blood BLOOD SPECIMEN / Unknown 10/04/2024 10:52 AM GENERAL OFFICE ASSISTANT 10/04/2024 11:32 AM GENERAL OFFICE ASSISTANT Result [facility] Kristin Vargas MD LAB - POINT OF CARE ORDERABL ES Final Result [facility] [address] [place] [address] * HEPATITIS C AB SCREEN RFLX NAAT QUANT (07/26/2024 7:45 PM CDT) Hepatitis C Antibody Non-react kati Non-reac tive 07/26/2024 8:26 PM CDT [facility] Comment:Hepatitis C Antibody screen indicates no serologic evidence of past or current infection with Hepatitis C Virus. Patients with unexplained liver disease who are immunocompromised or suspected of having acute Hepatitis C infection may benefit from Nucleic Acid Test (ELIU) for Hepatitis C Viral RNA to confirm Hepatitis C status. Blood BLOOD SPECIMEN / Unknown Lab Venipuncture / Unknown 07/26/2024 7:45 PM CDT 07/26/2024 7:46 PM CDT us Sherry Cary WELDING MACHINE OPERATOR-BOILER OPERATORS SUPERVISOR LAB - CHEMISTRY ORDERABLE S Final Result [facility] [address] [place] [phone], [facility] [phone] * Mammo Bilat Implant Dx W Volodymyr (06/07/2024 1:36 PM CDT) Anatomical Region Laterality Modality Breast Bilateral Mammography 06/07/2024 1:23 PM CDT Impressions 06/07/2024 3:41 PM CDT : 1. No bilateral mammographic or targeted left breast sonographic evidence of malignancy, with attention to the left periareolar region. 2. Bilateral subpectoral silicone breast prostheses. RECOMMENDATION: 1. Breast surgical consultation is recommended, given patient's reported new left nipple sensitivity and intermittent nipple inversion. Patient will be assisted with consultation in the breast surgical clinic. 2. Screening mammography in one year, pending no interval breast concerns. Dr. Steele discussed the examination findings and recommendations with the patient at the time of the examination. Patient will also receive the exam results by lay letter. OVERALL ASSESSMENT: BI-RADS CATEGORY 2: BENIGN. Dictated and interpreted by Erwin Juares MD (vice president quality assurance). residential program worker Thierno Gaitan MD assisted with the interpretation of this study. I, Emily Steele MD have personally reviewed and interpreted this examination/study. > Interpreting Provider: Emily Steele MD on 06/07/2024 3:41 PM Narrative 06/07/2024 3:41 PM CDT EXAMINATIONS: 1. BILATERAL DIGITAL DIAGNOSTIC MAMMOGRAM AND TOMOSYNTHESIS WITH CAD AND 2. LIMITED LEFT BREAST ULTRASOUND (COMBINED REPORT) LOCATION: [facility] EXAM DATE: 06/07/2024 HISTORY: 38-year-old female with left nipple inversion, which is easily reducible for the past 3 months with associated nipple sensitivity. Patient states she has had nipple inversion before. No family history of breast cancer. RISK ASSESSMENT CALCULATION: Patient completed a breast cancer risk assessment during her appointment. Based upon the information she provided and her mammographic breast density, her lifetime risk of developing breast cancer is 19 % (Average Risk <15%; Intermediate / Moderate Risk 15-19%; High Risk > 20%). Given her moderate increased risk of developing breast cancer and dense breast parenchyma, breast ultrasound is suggested for supplemental screening and can be performed at six-month intervals with screening mammography or the time of screening mammography. Risk assessment based upon the Tyrer-Cuzick v8 model. COMPARISON: Bilateral complete diagnostic mammogram dated 11/25/2019 MAMMOGRAM: Bilateral synthetic 2-D digital mammogram images and bilateral digital breast tomosynthesis (3D) were obtained and reviewed in the craniocaudal and mediolateral oblique projections with the breast implants displaced. Bilateral craniocaudal and mediolateral oblique conventional full field digital images were also obtained to include the bilateral breast implants. . A total of 8 images obtained. Computer-aided detection (CAD) was utilized. BREAST COMPOSITION: Category C: The breasts are heterogeneously dense which may obscure small masses. FINDINGS: There are subpectoral silicone breast implants, which limit evaluation of the breast parenchyma There are no suspicious findings or evidence of malignancy on mammography. No change from prior. LIMITED LEFT BREAST ULTRASOUND: Scanning performed of the subareolar left breast. Dr. Steele also scanned the patient. Of note, there is left nipple inversion which is easily reducible with gentle manual compression of the areola. No palpable lump. FINDINGS: There are no suspicious findings or evidence of malignancy on targeted ultrasound of the subareolar left breast. Sherry Cary WELDING MACHINE OPERATOR-BOILER OPERATORS SUPERVISOR MAMMO ORDERABLES Final Re sult * (ABNORMAL) LIPID PROFILE (02/23/2024 1:09 PM CDT) Cholesterol Total 222(H) <200 mg/dL 02/23/2024 2:13 PM CDT [facility] HDL 76 >40 mg/dL 02/23/2024 2:13 PM CDT [facility] Comment: ATP III Classification of HDL Cholesterol: <40 mg/dL: Considered a major risk factor. >60 mg/dL: Considered a negative risk factor. LDL Calculated 111(H) <100 mg/dL 02/23/2024 2:13 PM CDT [facility] Comment: ATP III Classification of LDL Cholesterol: <100 mg/dL: Optimal 100 - 129 mg/dL: Near Optimal/Above Optimal 130 - 159 mg/dL: Borderline High 160 - 189 mg/dL: High >190 mg/dL: Very High Triglycerides 173(H) <150 mg/dL 02/23/2024 2:13 PM T [facility] Comment: ATP III Classification of Triglycerides: <150 mg/dL: Normal 150 - 199 mg/dL: Borderline High 200 - 400 mg/dL: High >500 mg/dL: Very High Blood BLOOD SPECIMEN / Unknown Lab Venipuncture / Unknown 02/23/2024 1:09 PM CDT 02/23/2024 1:39 PM CDT Sherry Cary WELDING MACHINE OPERATOR-BOILER OPERATORS SUPERVISOR LAB - CHEMISTRY ORDERABLE S Final Result [facility] [address] [address], [facility] [phone] * HPV DETECTION HIGH RISK DAVID (03/23/2023 2:27 PM CDT) High Risk Human Papilloma Result Not detected Not detected 03/28/2023 9:49 AM CDT [facility] High Risk Human Papilloma Interp 03/28/2023 9:49 AM CDT [facility] Comment:High Risk Human Marcelo lloma Virus was Not Detected. Pathology/Cytolo gy MISCELLANEOUS SAMPLES / Unknown 03/23/2023 2:27 PM CDT 03/24/2023 12:31 PM CDT Narrative [facility] - 03/28/2023 9:49 AM CDT Nucleic acid isolated from the specimen was analyzed with a nucleic acid amplification test (FDA approved Gen-Probe HPV Assay) to detect high risk human papilloma virus (Types: 16, 18, 31, 33, 35, 39, 45, 51, 52, 56, 58, 59, 66, and 68). The reference range is Not Detected. Comment: These test results should not be used as the sole basis for clinical assessment and treatment of patients. These results should always be correlated with other available data (cytology, histology, and clinical information). us Anusha Zhou MD LAB - MICROBIOLOGY ORDERABLES nal Result [facility] [address] [facility] [phone] from Last 3 Months or Most Recently Relevant to Health Maintenance Insurance [facility] [employer] [facility] Address: [place] [address] [facility] Address: [place] [address] [facility] Address: [place] [address] [facility] Address: [place] [address] [facility] Member Subscriber Plan / Payer (Ef fective 2022-Present) Name:Jose Payton Relation to Subscriber:Self Name:JOSE PAYTON Payer ID:Not on file Type:HMO Address: [address] Member Subscriber Plan / Payer (Ef fective 2022-Present) Name:Jose Payton Relation to Subscriber:Self Name:JOSE PAYTON Payer ID:Not on file Type:HMO Address: [address] Member Subscriber Plan / Payer (Ef fective 2022-) Name:Jose Payton Relation to Subscriber:Self Name:JOSE PAYTON Payer ID:Not on file Type:HMO Address: [address] Member Subscriber Plan / Payer (Ef fective 2022-Present) Name:Jose Payton Relation to Subscriber:Self Name:JOSE PAYTON Payer ID:Not on file Type:O Address: [address] Member Subscriber Plan / Payer (Ef fective 2022-) Name:Jose Payton Relation to Subscriber:Self Name:JOSE PAYTON Payer ID:Not on file Type:HMO Address: [address] [facility] Member Subscriber Plan / Payer (Ef fective 2022-) Name:Jose Payton Relation to Subscriber:Self Name:JOSE PAYTON Payer ID:Not on file Type:HMO Address: [address] Member Subscriber Plan / Payer (Ef fective 2022-) Name:Jose Payton Relation to Subscriber:Self Name:JOSE PAYTON Payer ID:Not on file Type:HMO Address: [address] Member Subscriber Plan / Payer (Ef fective 2022-) Name:Jose Payton Relation to Subscriber:Self Name:JOSE PAYTON Payer ID:Not on file Type:HMO Address: [address] Member Subscriber Plan / Payer (Ef fective 2022-) Name:Jose Payton Relation to Subscriber:Self Name:JOSE PAYTON Payer ID:Not on file Type:HMO Address: [address] Member Subscriber Plan / Payer (Ef fective 2022-) Name:Jose Payton Relation to Subscriber:Self Name:JOSE PAYTON Payer ID:Not on file Type:O Address: [address] Member Subscriber Plan / Payer (Ef fective 2022-) Name:Jose Payton Relation to Subscriber:Self Name:JOSE PAYTON Payer ID:Not on file Type:O Address: [address] Member Subscriber Plan / Payer (Ef fective 2022-) Name:Jose Payton Relation to Subscriber:Self Name:JOSE PAYTON Payer ID:Not on file Type:O Address: [address] Member Subscriber Plan / Payer (Ef fective 2022-) Name:Jose Payton Relation to Subscriber:Self Name:JOSE PAYTON Payer ID:Not on file Type:O Address: [address] [facility] Address: [address] [facility] Address: [address] Member Subscriber Plan / Payer (Ef fective 2022-) Name:Jose Payton Relation to Subscriber:Self Name:JOSE PAYTON Payer ID:Not on file Type:O Address: [place] [id number] [facility] Plan / Payer (Ef fective 2022-) Name:Jose Payton Relation to Subscriber:Self Name:JOSE PAYTON Payer ID:Not on file Type:O Address: [address] Member Subscriber Plan / Payer (Ef fective 2022-) Name:Jose Payton Relation to Subscriber:Self Name:JOSE PAYTON Payer ID:Not on file Type:O Address: [address] Member Subscriber Plan / Payer (Ef fective 2022-) Name:Jose Payton Relation to Subscriber:Self Name:JOSE PAYTON Payer ID:Not on file Type:O Address: [place] [id number] [facility] Member Subscriber Plan / Payer (Ef fective 2022-) Name:Jose Payton Relation to Subscriber:Self Name:JOSE PAYTON Payer ID:Not on file Type:O Address: [address] [facility] Member Subscriber Plan / Payer (Ef fective 2022-) Name:Jose Payton Relation to Subscriber:Self Name:JOSE PAYTON Payer ID:Not on file Type:O Address: [place] [id number] [facility] Member Subscriber Plan / Payer (Ef fective 2022-) Name:Jose Payton Relation to Subscriber:Self Name:JOSE PAYTON Payer ID:Not on file Type:HMO [address]: [address] Member Subscriber Plan / Payer (Ef fective 2022-) Name:Jose Payton Relation to Subscriber:Self Name:JOSE PAYTON Payer ID:Not on file Type:O Address: [address] Member Subscriber Plan / Payer (Ef fective 2022-) Name:Jose Payton Relation to Subscriber:Self Name:JOSE PAYTON Payer ID:Not on file Type:O Address: [address] Member Subscriber Plan / Payer (Ef fective 2022-) Name:Jose Payton Relation to Subscriber:Self Name:JOSE PAYTON Payer ID:Not on file Type:HMO Address: [address] Member Subscriber Plan / Payer (Ef fective 2022-) Name:Jose Payton Relation to Subscriber:Self Name:JOSE PAYTON Payer ID:Not on file Type:O Address: [place] [id number] [facility] Member Subscriber Plan / Payer (Ef fective 2022-) Name:Jose Payton Relation to Subscriber:Self Name:JOSE PAYTON Payer ID:Not on file Type:O Address: [address] Member Subscriber Plan / Payer (Ef fective 2022-) Name:Jose Payton Relation to Subscriber:Self Name:JOSE PAYTON Payer ID:Not on file Type:O Address: [place] [id number] [facility] Member Subscriber Plan / Payer (Ef fective 2022-Present) Name:Charles Paytonlisa Landers Relation to Subscriber:Self Name:JOSE PAYTON Payer ID:Not on file Type:O Address: [place] [id number] [facility] Member Subscriber Plan / Payer (Ef fective 2022-) Name:Jose Payton Anshul Relation to Subscriber:Self Name:JOSE PAYTON Payer ID:Not on file Type:O Address: [place] [id number] [facility] Member Subscriber Plan / Payer ( fective 2022-) Name:Charles Paytonlisa Landers Relation to Subscriber:Self Name:JOSE PAYTON Payer ID:Not on file Type:O Address: [address] Care Teams Batch Records Clerk Relationship Specialty Start Date End Date Sherry Cary APRN-CNP [address] [facility] [address] [place] [id number] PCP - Attributed-[employer] [facility] ST[facility] 03/13/23 Sherry Cary APRN-CNP [address] [place] [id number] PCP - General Nurse Practitioner 09/17/24 Adriano Dawson MD Cardiovascular Disease 12/20/19 Anusha Pinedo PA-C [address] [place] [phone] Physician Medical/Surgery Registered Nurse Nephrology 02/10/23
--- OUTSIDE RECORDS SUMMARY | 2025-05-21 16:53 | XMS_ITS | Clinical Summary ---
Author Organization [facility] Health Address [address] [place] [address] Care Team Providers Care Seismic Survey Assistant Name Role Phone Unavailable Primary Care Provider Unavailabl e Social History Tobacco Use Types Packs/Day Years Used Date Smoking Tobacco: Never Assessed Comments Unknown Sex and Gender Information Value Date Recorded Sex Assigned at Not on file Legal Sex Female 3:18 PM PST Gender Identity Not on file Sexual Orientation Not on file Plan of Treatment Not on file
--- OUTSIDE RECORDS SUMMARY | 2025-05-21 16:53 | XMS_ITS | Encounter Summary ---
Author Organization [facility] Address [address] [place] [address] Care Team Providers Care Slip Operator Name Role Phone Adriano Dawson MD Unavailable [phone] Anusha Pinedo PAJudy Unavailable [phone] Sherry Cary Unavailable Sherry Cary Primary Care Provider [phone] Encounter Details Date Type Department Care Team (Late st Contact Info) Description 05/11/2025 Results Follow-Up [facility] - Urology [address] [place] [address], [place] [address] Jimy Edgar MD [address] [place] [address] DIV [place] [address] Social History Tobacco Use Types Packs/Day Years [...] CDT Office Visit [facility] - DIGITAL CARTOGRAPHER [facility] [address] [phone] Anusha Zhou MD [address] [place] [phone] 07/29/2025 2:00 PM CDT Office Visit [facility] - Ophthalmology [address] [place] [phone] Mark Arnold, GONZALES [address] [place] [phone] documented as of this encounter Goals Goal Patient Goal Type Associated Problems Recent Progress Patient-Stated? Author Increase daily physical activity Exercise On track( 024 9:23 AM PSYCH ARNP) No ShaheenKieranShiloh Janeth documented as of this encounter Visit Diagnoses Not on filedocumented in this encounter Care Teams Slip Operator Relationship Specialty Start Date End Date Sherry Cary APRN-CNP [address] [place] [address] PCP - Attributed-[employer] [facility] STL 03/13/23 Sherry Cary APRN-CNP [address] [place] [address] PCP - General Nurse Practitioner 09/17/24 Adriano Dawson MD Cardiovascular Disease 12/20/19 Anusha Pinedo PA-C [address] [place] [address] Physician Fur Buyer Nephrology 02/10/23 documented as of this encounter
--- OUTSIDE RECORDS SUMMARY | 2025-05-21 16:56 | XMS_ITS | Clinical Summary ---
Author Organization [facility] Address [address] [place] [address] Care Team Providers Care Wet Press Tender Name Role Phone Unavailable Primary Care Provider Unavailabl e Social History Tobacco Use Types Packs/Day Years Used Date Smoking Tobacco: Never Assessed Comments Unknown Sex and Gender Information Value Date Recorded Sex Assigned at Not on file Legal Sex Female 2:41 PM CDT Gender Identity Not on file Sexual Orientation Not on file Plan of Treatment Upcoming Encounters Date Type Department Care Team (Late st Contact Info) Description 07/15/2025 8:30 AM CDT Office Visit [facility] Family [facility] [address] [facility] [address] [place] [id number] Carolina Perez MD [address] [facility] [address] [place] [phone] Health Maintenance Due Date Last Done Comments Cervical Cancer Screening Pa p Smear (Age 30 to 64) Every 3 Years 1983 Annual Physical 1986 Hepatitis C 2001 DTaP, Tdap and Td Vaccines ( 1 - Tdap) 2002 Hepatitis B Vaccines (1 of 3 - 19+ 3-dose series) 2002 Cervical Cancer Screening Pa p with HPV Testing (Age 30 to 64) Every 5 Years 2013 Cervical Cancer Screening with HPV 2013 Mammogram Screening 2023 COVID-19 Vaccine ( - 2023-2 5 season) 2024 HPV Vaccines Aged Out No longer eligi ble based on patient's age to complete this topic Meningococcal B Vaccine Aged Out No l onger eligible based on patient's age to complete this topic Meningococcal Vaccine Aged Out No tena liz eligible based on patient's age to complete this topic Pneumococcal Vaccine: Pediat rics (0 to 5 Years) and At-Risk Patients (6 to 49 Years) Aged Out No longer eligible b ased on patient's age to complete this topic RSV Immunizations Under 20 Months Aged Out No longer eligible based on patient's age to complete this topic Insurance MEDICA
[2025-05-21 17:00] VITALS: BP 122/76; PULSE 89; RESP 18; TEMP 36.4; O2SAT 99
== END 2025-05-21 17:15 | disposition home or self-care (01) ==
PROVIDERS: Emergency Provider Nurse Practitioner Family
DX: L73.2 Hidradenitis suppurativa (principal); I10 Essential (primary) hypertension; E78.5 Hyperlipidemia, unspecified; E66.01 Morbid (severe) obesity due to excess calories; Z68.39 Body mass index [BMI] 39.0-39.9, adult; G47.33 Obstructive sleep apnea (adult) (pediatric)
CPT/HCPCS: 99213; G0463